=== PATIENT | female | born 1935 | race Native Hawaiian/Other Pacific Islander ===

== ENCOUNTER 2016-09-01 12:20 | Emergency (ER) | payer OTHER, BC ==
[~2016-09-01] VITALS: Ht 154.9 cm; Wt 56.7 kg
[~2016-09-01 12:20] MED LIST: CIPRO500 MG PO; LISI20TA24 PO; PILOCARPINE5 MG OR
[2016-09-01 13:05] VITALS: TEMP 98.1
[2016-09-01 14:00] LABS: PLATELET COUNT 387 K/uL (152-353)
[2016-09-01 14:11] LABS: POTASSIUM 3.8 mmol/L (3.6-5.2); SODIUM 125 mmol/L (136-145)
[2016-09-01 18:19] VITALS: BP 187/43
== END 2016-09-01 18:19 | disposition home or self-care (01) ==
LOC: ED 12:20
DX: C14.0 Malignant neoplasm of pharynx, unspecified (principal); M16.11 Unilateral primary osteoarthritis, right hip; M79.604 Pain in right leg; W18.39XA Other fall on same level, initial encounter; Y92.89 Other specified places as the place of occurrence of the external cause
CPT/HCPCS: 80053; 81000; 85027; 96372; 99283; J1885

== ENCOUNTER 2016-10-05 15:58 | Outpatient (CLI) | payer OTHER, BC ==
[2016-10-06] MEDS ORDERED: DONE5TAB PEG (01:21)
== END 2016-10-05 16:06 | disposition short-term general hospital (02) ==
LOC: AMB 15:58
DX: R11.2 Nausea with vomiting, unspecified (principal); R00.0 Tachycardia, unspecified; E86.0 Dehydration
CPT/HCPCS: A0425; A0427

== ENCOUNTER 2016-10-05 16:07 | Inpatient (IN) | payer OTHER, BC ==
[~2016-10-05] VITALS: Ht 162.6 cm; Wt 58.3 kg
[2016-10-05 16:10] VITALS: BP 148/77; TEMP 99.3
[2016-10-05 17:05] LABS: PLATELET COUNT 424 K/uL (152-353)
[2016-10-05 17:15] LABS: POTASSIUM 3.9 mmol/L (3.6-5.2); SODIUM 130 mmol/L (136-145)
[2016-10-05 18:00] VITALS: BP 137/75
[2016-10-05 20:14] VITALS: BP 147/77; TEMP 98.9; Ht 162.6 cm; Wt 58.3 kg
[2016-10-06] MEDS ORDERED: DONE5TAB PEG (01:21)
[2016-10-06 04:00] VITALS: BP 120/71; TEMP 97.8
[2016-10-06 07:56] VITALS: BP 141/68; TEMP 98.1
[2016-10-06 09:54] LABS: PLATELET COUNT 359 K/uL (152-353)
[2016-10-06 10:04] LABS: POTASSIUM 3.6 mmol/L (3.6-5.2); SODIUM 131 mmol/L (136-145)
[2016-10-06 12:00] VITALS: BP 137/71; TEMP 98
[2016-10-06 16:00] VITALS: BP 135/81; TEMP 98.9
[2016-10-06 20:00] VITALS: BP 148/76; TEMP 97.7
[2016-10-07] VITALS: BP 162/77; TEMP 100
[2016-10-07 02:50] LABS: PLATELET COUNT 332 K/uL (152-353)
[2016-10-07 03:32] LABS: POTASSIUM 3.5 mmol/L (3.6-5.2); SODIUM 129 mmol/L (136-145)
[2016-10-07 04:00] VITALS: BP 164/75; TEMP 99.5
[2016-10-07 08:00] VITALS: BP 148/80; TEMP 96.8
[2016-10-07 12:00] VITALS: BP 137/78; TEMP 97.1
[2016-10-07 16:00] VITALS: BP 163/71; TEMP 99.6
[2016-10-07 20:00] VITALS: BP 124/75; TEMP 99.5
[2016-10-08] VITALS: BP 141/66; TEMP 99.2
[2016-10-08 04:00] VITALS: BP 149/94; TEMP 98.9
[2016-10-08 05:20] LABS: PLATELET COUNT 334 K/uL (152-353)
[2016-10-08 05:51] LABS: SODIUM 131 mmol/L (136-145)
[2016-10-08 08:00] VITALS: BP 146/78; TEMP 97.4
[2016-10-08 12:00] VITALS: BP 138/80; TEMP 97.8
[2016-10-08 16:00] VITALS: BP 168/87; TEMP 98.6
[2016-10-08 20:13] VITALS: BP 148/89; TEMP 98.9
[2016-10-09 00:26] VITALS: BP 160/84; TEMP 97.7
[2016-10-09 05:00] VITALS: BP 121/77; TEMP 98.6
[2016-10-09 06:04] LABS: PLATELET COUNT 315 K/uL (152-353)
[2016-10-09 06:07] LABS: POTASSIUM 3.5 mmol/L (3.6-5.2); SODIUM 129 mmol/L (136-145)
[2016-10-09 08:00] VITALS: BP 164/79; TEMP 98.3
[2016-10-09 12:00] VITALS: BP 158/86; TEMP 97.5
[2016-10-09 16:00] VITALS: BP 158/74; TEMP 97.8
[2016-10-09 20:00] VITALS: BP 159/82; TEMP 97.7
[2016-10-10] VITALS: BP 146/85; TEMP 97.7
[2016-10-10 04:00] VITALS: BP 166/85; TEMP 97.4
[2016-10-10 06:51] LABS: PLATELET COUNT 356 K/uL (152-353)
[2016-10-10 06:55] LABS: POTASSIUM 3.6 mmol/L (3.6-5.2); SODIUM 127 mmol/L (136-145)
[2016-10-10 08:00] VITALS: BP 158/83; TEMP 98.4
[2016-10-10 12:00] VITALS: BP 122/77; TEMP 98.6
[2016-10-10 16:00] VITALS: BP 165/81; TEMP 98.1
== END 2016-10-10 15:47 | disposition swing bed (61) | DRG 394 ==
LOC: ED 16:07 → MED/SURG 18:22
PROVIDERS: Emergency Medicine; ADMIT Emergency Medicine
PROC: 30233N1 Transfusion of Nonautologous Red Blood Cells into Peripheral Vein, Percutaneous Approach (ICD-10-PCS; 2016-10-06)
PROC: 0D20XUZ Change Feeding Device in Upper Intestinal Tract, External Approach (ICD-10-PCS; principal; 2016-10-07)
DX: K94.23 Gastrostomy malfunction (principal); E46 Unspecified protein-calorie malnutrition; R55 Syncope and collapse; Y84.8 Other medical procedures as the cause of abnormal reaction of the patient, or of later complication, without mention of misadventure at the time of the procedure; Y73.8 Miscellaneous gastroenterology and urology devices associated with adverse incidents, not elsewhere classified; Y92.89 Other specified places as the place of occurrence of the external cause; R11.2 Nausea with vomiting, unspecified; E86.0 Dehydration; D64.89 Other specified anemias; M15.8 Other polyosteoarthritis; C14.0 Malignant neoplasm of pharynx, unspecified; C06.9 Malignant neoplasm of mouth, unspecified
CPT/HCPCS: 36415; 36600; 80048; 80053; 81000; 82272; 82550; 82553; 82805; 83605; 83735; 84132; 84484; 85027; 86850; 86900; 86901; 86922; 87045; 87077; 87205; 87328; 87329; 87493; 87798; 87899; 93005; 96365; 96366; 96367; 96372; 96376; 99284; J1650; J2060; J2405; J2543; J3480; J3490; P9016

== ENCOUNTER 2016-10-10 15:47 | Inpatient (IN) | payer OTHER, BC ==
[~2016-10-10] VITALS: Ht 162.6 cm; Wt 58.3 kg
[~2016-10-10 15:47] MED LIST changes: +DONE5TAB PEG
[2016-10-10 19:29] VITALS: BP 165/81; TEMP 98.1; Ht 162.6 cm; Wt 58.3 kg
[2016-10-10 20:00] VITALS: BP 148/72; TEMP 99.3
[2016-10-11 08:00] VITALS: BP 167/87; TEMP 97.2
== END 2016-10-11 16:45 | DRG 556 ==
LOC: MED/SURG 15:47
PROVIDERS: ADMIT Emergency Medicine
DX: M62.81 Muscle weakness (generalized) (principal); R41.82 Altered mental status, unspecified; R55 Syncope and collapse; C14.0 Malignant neoplasm of pharynx, unspecified; C06.89 Malignant neoplasm of overlapping sites of other parts of mouth; I10 Essential (primary) hypertension; M79.604 Pain in right leg
CPT/HCPCS: 36600; 82805; 85379; 94664; 94760; J1100; J3490

== ENCOUNTER 2016-10-11 16:45 | Inpatient (IN) | payer OTHER, BC ==
[~2016-10-11] VITALS: Ht 162.6 cm; Wt 61.3 kg
--- NOTE | 2016-10-11 16:40 | NUR ---
IN PT'S ROOM TO PERFORM AFTERNOON FEEDING AND ADMINISTER NEW MEDICATIONS ORDERED. PT RESTING QUIETLY. PT CONTINUING TO HAVE DIFFICULTY EXPECTORATING SECRETIONS. SMALL AMOUNT OF YELLOW SECRETIONS OBTAINED. @ 1642 PT STILL TRYING TO COUGH UP MORE PT SKIN COLOR OBSERVED CHANGING AROUND LIPS TO WHITE AND UNABLE TO TALK TO ME. @ 1644 O2 NC INCREASED FROM 2 TO 4L CALLED NURSES STATION FOR VENTI MASK STAT. WITHIN APRROXIMATELY 3 SECONDS LATER PT'S COLORING STARTED CHANGING AROUND LIPS TO BLUE. KAN INMAN RN IN ROOM AT THIS TIME. @ 1645 CODE CALLED. @ 1646 OBTAINED AMBU BAG FROM [facility] AT NURSES STATION. @ 164 SANYA MERIDA RT AT BEDSIDE BAGGING PT. @ 1650 [facility] IN ROOM. VITALS: BP 218/134 P 137 O2 99% RESPIRATORY HAVING DIFFICULTY BAGGING PATIENT. DR SANABRIA AT BEDSIDE. @ 1654 RACEMIC EPINEPHRINE GIVEN VIA NEB TX VIA BLOWBY. @ 1657 R FA 20G OBTAINED PER MYSELF. IVFS GIVEN PER BOLUS ROUTE INFUSING PER KAN INMAN RN. @ 1658 L HAND 18G SL OBTAINED VIA SARA DAVISON RN VITALS: BP 213/108 P 97 @ 1659 DECADRON 10MG IVP @ 1701 VITALS: BP 209/99 P 99 @ 1702 VITALS: BP 195/93 P 91 @ 1707 ETOMIDATE 10MG IVP PER TAE MORRIS, STEREOPLOTTER OPERATOR @ 1708 SUCC 100MG IVP PER TAE MORRIS, STEREOPLOTTER OPERATOR @ 1708 ETOMIDATE 10MG IVP PER TAE MORRIS, STEREOPLOTTER OPERATOR @ 1709 DR SANABRIA AT PT'S HEAD SUCTIONING PT WITH YAUNKER AND LARYNGISCOPE. GLIDESCOPE BROUGHT IN AT THIS TIME. @ 1710 VITALS: BP 199/119 P 125 O2 SAT 100% @ 1710 RESP BAGGING PT VIA AMBU BAG @ 1711 DR SANABRIA OBTAINING VISUAL AID WITH GLIDESCOPE TO ATTEMPT INTUBATION. SUCTIONING CONTINUED NEEDING WITH RODY UNSUCCESSFUL D/T POSSIBLE NECROTIC/BURNT SKIN/SCAR TISSUE. @ 1712 INTUBATION OBTAINED WITH 6 INCH ET TUBE @ 1716 VITALS: BP 193/109 P 128 O2 95% @ 1722 VITALS: BP 193/126 P 128 O2 100% @ 1725 DR SANABRIA BACK IN ROOM INFORMED HIM ICU BED IS HAVING TO BE TERMINALLY CLEANED D/T INFECTIOUS PATIENT PRIOR TO BEING ABLE TO TRANSFER PATIENT TO ICU. INFORMED HIM THAT I WE ARE UNABLE TO START ANY IV DRIPS ON FLOOR. NEW ORDER RECEIVED FOR VERSED 5MG IVP AND RESP TO MAINTAIN VENTILATION UNTIL ICU BED AVAILABLE. @ 1726 VERSED 5MG IVP GIVEN FOR SEDATION @ 1727 XRAY OBTAINED FOR ET PLACEMENT @ 1735 VERSED 5MG IVP GIVEN FOR SEDATION @ 1737 SPOKE WITH KAN INMAN RN IN ICU REGARDING ROOM. SHE STATED IN CLEANING ROOM WITH HOUSEKEEPING AT THIS TIME. @ 1738 VITALS: BP 156/87 P 95 02 SAT 100% @ 1743 VERSED 5MG IVP GIVEN FOR SEDATION @ 1800 RESP MAINTAINING AIRWAY MANAGEMENT MANUALLY BAGGING ICU ROOM STILL UNAVAILABLE RESP WILL MAINTAIN AIRWAY UNTIL PT ABLE TO TRANSFER TO ICU. @ 1900 PT TRANSFERRED TO ICU BED B. @ 1930 REPORT GIVEN TO SUMMER CRUZ RN
[2016-10-11 18:03] LABS: PLATELET COUNT 369 K/uL (152-353)
[2016-10-11 18:25] LABS: POTASSIUM 3.3 mmol/L (3.6-5.2); SODIUM 127 mmol/L (136-145)
--- NOTE | 2016-10-11 19:00 | NUR ---
RCD PT FROM FLOORRT AND NURSE IN ATTENDENCE ORAL ET PLACED ON VENT RATE 12 TV 500 PEEP 5 O2 SAT 40 PLACED ON VERSED GTT 5 MG/HR PUPILS PINPOINT ROBERTS SD PALE YELLOW LUNGS CLEAR BUT DISTANT.
--- NOTE | 2016-10-11 20:00 | NUR ---
FAMILY AT BEDSIDE RESTING ON VENT VERSED AT 5 MG/HR
--- NOTE | 2016-10-11 21:00 | NUR ---
EKG/ABG DONE JADEN VENT CHANGED 450 O2 35% MONITOR SR RESTING
--- NOTE | 2016-10-11 22:00 | NUR ---
TURNED ON R SIDE,CONSCIOUS SEDATION MAINTAINED 5 MG/HR. MONITOR SR ,URINE OUTPUT CLEAR YELLOW VENT MAINTAINED
[2016-10-11 22:30] VITALS: BP 109/71
[2016-10-11 22:45] VITALS: BP 115/70
[2016-10-11 23:00] VITALS: BP 97/59
--- NOTE | 2016-10-11 23:00 | NUR ---
RESTING WITH SEDATION RESP TX GIVEN VENT MAINTAINED MONITOR SR URINE OUT ADEQUATE CLEAR YELLOW.
[2016-10-11 23:30] VITALS: BP 116/64
[2016-10-12] VITALS (38 sets, daily range): BP systolic 94–145; BP diastolic 56–80; TEMP 94.2–98.3
--- NOTE | 2016-10-12 | NUR ---
TURNED AND POSITIONED ON L SIDE VENT MAINTAINED,VERSED 5 MG /HR MONITOR SR
--- NOTE | 2016-10-12 00:30 | NUR ---
EKG DONE BY RT SR,NO CHANGE
--- NOTE | 2016-10-12 01:00 | NUR ---
PT TEMP 98.1 R WARMING BLANKET PLACED ON PT AND JADEN WELL
--- NOTE | 2016-10-12 01:47 | NUR ---
BLOOD DRAWN TO LAB MAINTAIN VERSED GTT 5 MG TEMP 94.7 R VENT MAINTAINED.
--- NOTE | 2016-10-12 03:05 | NUR ---
PUPILS REMAIN PIN POINT VENTMAINTAINED,OCCASIONALLY MOVING LEGS. TEMP 94.8 R CONT ON WARMING BLANKET VERSED AT 5MG/HR.
--- NOTE | 2016-10-12 04:00 | NUR ---
NO CHANGE TEMP 95.6 R VERSED 5 MG/HR VENT MAINTAINED
--- NOTE | 2016-10-12 04:51 | NUR ---
ABG DRAWN TO LAB BY RESP MONITOR SR TEMP 95.9 R
--- NOTE | 2016-10-12 05:22 | NUR ---
REMAINS ON WARMING BLANKET TEMP 96.4 R VENT MAINTAINED VERSED AT 5 MG/HR. PUPILS PINPOINT MONITOR SR NO CHANGE.
--- NOTE | 2016-10-12 06:15 | NUR ---
EKG DONE CONT ON WARMING BLANKET TEMP 97 R MONITOR SR
--- NOTE | 2016-10-12 06:40 | NUR ---
BLOOD DRAWN TO LAB ,CHEST X RAY DONE JADEN TEMP 97.3. REPOSITIONED HOB 45 VENT MAINTAINED VERSED 5 MG.
[2016-10-12 06:52] LABS: PLATELET COUNT 363 K/uL (152-353)
[2016-10-12 07:04] LABS: POTASSIUM 3.5 mmol/L (3.6-5.2); SODIUM 132 mmol/L (136-145)
--- NOTE | 2016-10-12 07:30 | NUR ---
PT SWEATY, RECTAL TEMP 98.3. WARMING BLANKET TURNED OFF. WILL CONTINUE TO MONITOR.
--- NOTE | 2016-10-12 08:00 | NUR ---
EXTENSIVE MOUTH CARE DONE AND MOUTH SUCTIONED. PT HAS DRIED SECRETIONS AND LOOSE TISSUE IN MOUTH AND BACK OF THROAT.
--- NOTE | 2016-10-12 08:15 | NUR ---
RT AT BEDSIDE. O2 CHANGED TO 28%.
--- NOTE | 2016-10-12 09:11 | NUR ---
DR. SANABRIA HERE TO SEE PT.
--- NOTE | 2016-10-12 09:31 | NUR ---
RT CHANGED VENT TO SIMV.
--- NOTE | 2016-10-12 10:05 | NUR ---
DR. SANABRIA SPEAKING WIT DR. GARCIA ON THE PHONE. DR. SANABRIA WAS REFERRED TO CALL DR. COHN IN [place].
--- NOTE | 2016-10-12 10:37 | NUR ---
IV STARTED IN L AC WITH A 20G X1 ATTEMPT FOR CT.
--- NOTE | 2016-10-12 11:00 | NUR ---
pt to ct via bed with rt ventilating pt with ambu.
--- NOTE | 2016-10-12 11:10 | NUR ---
iv to l ac infiltrated after ct contrast inj. iv d/c'd with tip intact pressure dressing applied.
--- NOTE | 2016-10-12 11:20 | NUR ---
pt back from ct in stable cond. pt placed on monitors. will continue to monitor.
--- NOTE | 2016-10-12 12:08 | NUR ---
RECTAL TEMP 96.7. WARMING BLANKET PLACED BACK ON PT.
--- NOTE | 2016-10-12 12:10 | NUR ---
MOUTH CARE DONE AND SUCTIONED.
--- NOTE | 2016-10-12 14:10 | NUR ---
family at bedside.
--- NOTE | 2016-10-12 14:50 | NUR ---
rectal temp 97.8. warming blanket turned off. will continue to monitor.
--- NOTE | 2016-10-12 15:00 | NUR ---
mouth care done. pt suctioned. pt herrera well.
--- NOTE | 2016-10-12 17:00 | NUR ---
nad noted at this time./ rectal temp 97.3. will continue to monitor./ dr. green here for a check up on pt.
--- NOTE | 2016-10-12 18:37 | NUR ---
DR. SANABRIA AWARE OF PT'S I&0'S.
--- NOTE | 2016-10-12 18:45 | NUR ---
RECTAL TEMP 96.9 WARMING BLANKET BACK ON.
--- NOTE | 2016-10-12 19:30 | NUR ---
PM ASSESSMENT COMPLETED. PT TEMPERATURE PER RECTAL PROBE IS 97.1. PT WITH WARMING BLANKET ON AT THIS TIME.
--- NOTE | 2016-10-12 20:09 | NUR ---
BLOOD GLUCOSE 154.
--- NOTE | 2016-10-12 22:01 | NUR ---
PT'S CALLED. PT STATUS REPORTED. STATES HE WILL BE HERE IN AM TO SEE HER.
--- NOTE | 2016-10-12 22:05 | NUR ---
PT'S SKIN WARM TO TOUCH. TEMP 98.0 AXILLARY. WARMING BLANKET DC'D AT THIS TIME.
--- NOTE | 2016-10-12 23:01 | NUR ---
RESPIRATORY THERAPIST AT BEDSIDE FOR TREATMENT.
[2016-10-13] VITALS (41 sets, daily range): BP systolic 127–169; BP diastolic 64–96; TEMP 97.5–98.4
--- NOTE | 2016-10-13 04:00 | NUR ---
MOUTH CARE GIVEN.
--- NOTE | 2016-10-13 04:33 | NUR ---
RESPIRATORY THERAPIST AT BEDSIDE FOR TREATMENT.
--- NOTE | 2016-10-13 05:24 | NUR ---
LAB PRESENT FOR LAB DRAW.
[2016-10-13 06:16] LABS: PLATELET COUNT 385 K/uL (152-353)
[2016-10-13 06:18] LABS: POTASSIUM 3.6 mmol/L (3.6-5.2); SODIUM 139 mmol/L (136-145)
--- NOTE | 2016-10-13 07:41 | NUR ---
Lakia of Respiratory at bedside. Pt's breaths per minutes (bpm) decreased to 10 at this time. Pt tolerating well.
--- NOTE | 2016-10-13 08:00 | NUR ---
Family at bedside.
--- NOTE | 2016-10-13 10:30 | NUR ---
Mouth care given to Pt and suctioned at this time.
--- NOTE | 2016-10-13 13:38 | NUR ---
Dr. Byrnes speaking with via phone. No new orders at this time.
--- NOTE | 2016-10-13 14:51 | NUR ---
Dr. Byrnes speaking with Dr. Murray via phone. No new orders at this time.
--- NOTE | 2016-10-13 17:24 | NUR ---
pt has eyes open nad noted at this time.
--- NOTE | 2016-10-13 18:25 | NUR ---
PT MORE ALERT AND MOVING AROUND. RR [address] SANABRIA NOTIFIED. RECEIVED ORDER FOR DIPRAVAN.
--- NOTE | 2016-10-13 19:30 | NUR ---
RECEIVED PATIENT FROM LIVAN SMILEY RN. PATIENT IS SUPINE IN SEMI-FOWLERS POSITION. PATIENT IS SEDATED AND ON THE VENT. VENT SETTINGS RATE 10, PEAK 45, PEEP 5, TIDAL VOLUME 450, 28 O2%. ET TUBE NOTED 20 AT THE LIP. ASSESSMENT COMPLETED AT THIS TIME. IV 20G NOTED TO THE RIGHT WIRST INFUSING DIPRIVAN AT 3.8 MCG/HR, NS AT 100 ML/HR AND VERSED 3 MG/HR. PATIENT HAS WARMING BLANKET ON WITH RECTAL TEMP NOTED AT 98.0. ROBERTS NOTED TO BE PATENT AND INTACT WITH APPROX 200 ML OF CLEAR YELLOW URINE NOTED IN ROBERTS BAG. BED LOCKED IN LOW POSITION WITH SIDE RAILUP X2, CALL KULKARNI WITHIN REACH. FAMILY MEMEBER IS AT THE BEDSIDE. WILL CONTINUE TO MONITOR NEEDED.
--- NOTE | 2016-10-13 23:00 | NUR ---
PATIENT REPOSITIONED TO HER LEFT SIDE.
[2016-10-14] VITALS (42 sets, daily range): BP systolic 122–180; BP diastolic 69–97; TEMP 97–98.2
[2016-10-14] MEDS ORDERED: DONE5TAB PO (06:03)
[2016-10-14] MEDS ORDERED: PROTONIX20 MG PO (06:03)
[2016-10-14] MEDS ORDERED: LACTTAB PO (06:05)
--- NOTE | 2016-10-14 07:00 | NUR ---
REPOSITIONED IN BED ASSIST WITH BED BATH FINISHED PT JADEN WELL TURNED FROM SIDE TO SIDE. APPEARS TO BE RESTING WELL ON VENT. HOLDING ALL MEDS TO BE GIVEN VIA PEG TUBE FOR NOW. PT MAY BE POSSIBLE SURGERY/TRANSFER.
[2016-10-14 08:56] LABS: PLATELET COUNT 396 K/uL (152-353)
[2016-10-14 09:06] LABS: POTASSIUM 3.3 mmol/L (3.6-5.2); SODIUM 140 mmol/L (136-145)
--- NOTE | 2016-10-14 11:26 | NUR ---
RECIEVED IV MED RESTING QUIETLY. REPOSITIONED IN BED. VISITED. RECIEVED CALL FROM [facility], DR LOZADA ALSO CALLED WILL CALL BACK AFTER LUNCH TO TALK WITH DR SANABRIA. MOUTH CARE DONE.
--- NOTE | 2016-10-14 12:42 | NUR ---
SHANNON ORONA RN SPOKE WITH [facility] R/T HOSPICE AND FAMILY REQUESTED TO SPEAK WITH SOMEONE FROM [facility]. SHANNON ORONA RN SPOKE WITH DAMON FROM [facility] AND DAMON STATED THAT THEY WOULD COME TALK WITH THE FAMILY TODAY AROUND 2:00 PM.
--- NOTE | 2016-10-14 14:00 | NUR ---
FAMILY MEMBERS HERE, RECIEVED CALL THAT HOSPICE WOULD BE COMING BY. FREQUENT MOUTH CARE, SUCTION CREAMY SECRETIONS SIDE OF MOUTH.
--- NOTE | 2016-10-14 15:35 | NUR ---
HOSPICE HAD CALLED SAID THEY WOULD BE HERE A LITTLE LATTER. PT TURNED TO RIGHT SIDE MOUTH CARE SUCTION MOD AMOUNT WHITE THICK SECRETIONS OBTAINED. JADEN WELLL. REMOVED RECTAL TEMP PROBE. SKIN CARE LINNETTE CARE DONE. RESTING BETTER ON LEFT SIDE. MEDS EFFECTIVE FOR SEDATION. DOES NOT APPEAR TO BE HAVING ANY PAIN.
--- NOTE | 2016-10-14 18:16 | NUR ---
HOSPICE HAD COME BY TALKED WITH FAMILY MEMBERS. FAMILY TO TALK WITH DR SANABRIA TOMORROW ABOUT HOSPICE. CHECKED PEG NO RESIDUAL, HOB UP PT RECIEVED 60 ML WATER FOLLOWED BY 1/2 CAN ENSURE FOLLOW BY 60 ML WATER JADEN WELL. RECIEVED MEDS ORTDERED. REPOSITIONED IN BED HOB UP.
--- NOTE | 2016-10-14 19:30 | NUR ---
RCD PT ON VENT RATE 10 TV 450 O2 28 PEEP 5. ON SEDATINN VERSED 3MG/HR DIPROVAN 10MCG/3.9CC. MONITOR SR 97 RESTING ON BACK PEG IN TESSY RODRIGUEZ.
--- NOTE | 2016-10-14 20:30 | NUR ---
FAMILY CALLED FOR REPORT PT NO CHANGE TURNED AND POSITIONED ON R SIDE RESP TX GIVEN VENT DIPROVAN VERSED MAINTAINED TEMP 98 A
--- NOTE | 2016-10-14 21:30 | NUR ---
NO CHANGE MONITOR SR RESTING
[2016-10-15] VITALS (45 sets, daily range): BP systolic 117–185; BP diastolic 10–99; TEMP 97.3–97.7
--- NOTE | 2016-10-15 | NUR ---
RESP TX GIVEN TURNED TUBE FEEDING 1/2 CAN ENSURE 100H20 JADEN HOB ELEVATED N
--- NOTE | 2016-10-15 01:09 | NUR ---
TURNED AND POSITIONED ON BACK VERSED/DIPROVAN SEDATION CONTINUES MONITOR SR VENT MAINTAINED MOUTH SUCTIONED.
--- NOTE | 2016-10-15 02:00 | NUR ---
BP 178/101 DR SMITH CALLED LABATELOL 20 MG IV GIVEN 169/90 AFTER WILL CONT TO MONITOR
--- NOTE | 2016-10-15 03:00 | NUR ---
BP REMAINS ELEVATED NO CHANGE
--- NOTE | 2016-10-15 04:00 | NUR ---
RESP TX GIVEN TURNED ON R SIDE
--- NOTE | 2016-10-15 05:00 | NUR ---
PERIODS OF BRADYCARDIA 56/60.STARTED 20G R WRIST X1. BLOOD DRAWN TO LAB
[2016-10-15 06:03] LABS: PLATELET COUNT 459 K/uL (152-353)
--- NOTE | 2016-10-15 06:06 | NUR ---
BLOOD GASES DRAWN BY PT JADEN PROCEDURE TURNED TO BACK,TUBE FEEDING 120CC ENSURE [id number] NO RESIDUAL
--- NOTE | 2016-10-15 06:41 | NUR ---
CHEST XRAY DONE REPOSITIONED MONITOR SR
--- NOTE | 2016-10-15 08:07 | NUR ---
ANM ASSESSEMENT DONE. PT RESTING QUIETLY ELEVATED B/P 172/93 WILL CALL MD. STARTED IV RIGHT AC X1 STICK BLOOD REDRAWN FOR LAB JADEN WELL. GOOD BLOOD RETURN IV FLUIDS CHANGED TO NEW SITE. NOTED DEPENDENT EDEMA.
[2016-10-15 08:44] LABS: POTASSIUM 3.4 mmol/L (3.6-5.2); SODIUM 132 mmol/L (136-145)
--- NOTE | 2016-10-15 10:30 | NUR ---
PT REPOSITIONED RECIEVED AM MEDS JADEN WELL. ELEVATED B/P 190/99. DR WATTS HERE ASKED HIM ABOUT B/P RECIEVED ORDER FOR HYDRAZINE 10 MG IV X 1 DOSE. MED PULLED AND GIVEN ORDER. FAMILY AT BEDSIDE, TO MEET WITH DR SANABRIA AND HOSPICE NURSE TODAY.
[2016-10-15] MEDS ORDERED: LISINOP/HCTZ1 TA2 PO (10:56)
--- NOTE | 2016-10-15 11:07 | NUR ---
SPOKE WITH DR WATTS WILL NOT BE HAVING ANY SURGERY TODAY POSSIBLE TRACH PLACED. CHECKED PEG NO RESIDUAL, PT RECIEVED FEEDING ORDERED JADEN WELL. B/P 151/78 MEDS FOR HIGH B/P EFFECTIVE. PT APPEARS TO BE RESTING WELL.
--- NOTE | 2016-10-15 13:30 | NUR ---
DR SANABRIA MET WITH FAMILY WAIT ROOM DISCUSSED PT OUTCOME. PT WILL HAVE TRACH PLACED MONDAY. FAMILY MEMBERS AGREED. THEN PT TO BE ADMITTED TO HOSPICE. RECIEVED CALL FROM RAQUEL LUX RN FROM HOSPICE, INFORMED HER ABOUT FAMILY DECISION.
--- NOTE | 2016-10-15 14:30 | NUR ---
RESTING QUIETLY HOB UP NO ACUTE DISTRESS REPOSITIONED IN BED.
--- NOTE | 2016-10-15 17:00 | NUR ---
REPOSITIONED IN BED MOUTH CARE DONE, JADEN WELL. CHECKED FEEDING NO RESIDUAL FROM PEG. PT RECIEVED 1/2 CAN ENSURE WITH FLUSHES. RECIEVED AFTERNOON MEDS JADEN WELL. B/P MEDS GIVEN TODAY EFFECTIVE B/P 152/78
--- NOTE | 2016-10-15 20:10 | NUR ---
PM ASSESSMENT COMPLETED. AT BEDSIDE. ROBERTS CATHETER TO BEDSIDE DRAINAGE.
--- NOTE | 2016-10-15 20:20 | NUR ---
DR. SANABRIA NOTIFIED OF PT'S INCREASING BP'S. ORDER RECEIVED.
[2016-10-16] VITALS (48 sets, daily range): BP systolic 111–163; BP diastolic 57–90; TEMP 93–97.9
--- NOTE | 2016-10-16 | NUR ---
RESIDUAL NOTED FROM PEG. UNABLE TO FEED AT THIS TIME.
--- NOTE | 2016-10-16 00:15 | NUR ---
BEDBATH GIVEN. PT WITH LARGE BOWEL MOVEMENT. LINENS CHANGED. CREAM APPLIED TO REDDENED AREA ON BUTTOCKS.
--- NOTE | 2016-10-16 02:00 | NUR ---
NO RESIDUAL NOTED FROM PEG TUBE. 1/2 CAN OF ENSURE GIVEN WITH FLUSHES.
--- NOTE | 2016-10-16 05:45 | NUR ---
RESPIRATORY THERAPIST PRESENT FOR ARTERIAL BLOOD GAS DRAW.
--- NOTE | 2016-10-16 05:45 | NUR ---
RADIOLOGY PRESENT FOR CHEST X-RAY
--- NOTE | 2016-10-16 06:15 | NUR ---
LABS DRAWN. TO LAB
[2016-10-16 06:35] LABS: PLATELET COUNT 429 K/uL (152-353)
[2016-10-16 06:52] LABS: POTASSIUM 3.2 mmol/L (3.6-5.2); SODIUM 135 mmol/L (136-145)
--- NOTE | 2016-10-16 08:25 | NUR ---
AM ASSESSEMENT DONE MOVED UP IN BED REPOSITONED. MOUTH CARE DONE CHECKED PEG NO RESIDUAL FLUSHED 40 ML WATER. RESP EVEN 12 MIN BREATHING OVER VENT 2 BREATHS MIN. SAT 99% INSP CLEAR NOTED A LITTLE FINE EXP FINE RONCHI. IV FLUIDS INFUSING WITHOUT DIFFICULTY.
--- NOTE | 2016-10-16 10:00 | NUR ---
DR SANABRIA VISITED CHECKED PT, RECIEVED ORDERS. HERE TO VISIT, SPOKE WITH DR. SANABRIA. PT PULLED UP IN BED REPOSITIONED SUCTION ET TUBE THIN SECRETION VIA ET TUBE OBTAINED. MEDS INFUSING ORDERED. IV MEDS TO KVO WILL GIVE LASIX WHEN PROFILED.
--- NOTE | 2016-10-16 12:15 | NUR ---
PT TURNED AND REPOSITIONED, FREQUENT MOUTH CARE, FREQUENT SUCTION ET TUBE. SMALL AMOUNT YELLOW WHITE SECRETIONS FROM ET. PT HAVING SOME DIARRHEA WHEN COUGHING, CONTINUE TO RECIEVED FEEDING 1/2 CAN ENSURE. WILL CHANGE TO NPO STATUS AT MIDNIGHT. FAMILY MEMBERS VISITED.
--- NOTE | 2016-10-16 14:30 | NUR ---
TURNED AND REPOSITIONED FREQUENT MOUTH CARE. RECIEVED IV MEDS ORDERED. PATIENT RECIEVING MAGNESIUN,POTASSIUM AND LASIX 20 ORDERED.
--- NOTE | 2016-10-16 15:28 | NUR ---
MEDS EFFECTIVE VOIDING WELL CLEAR YELLOW URINE LASIX EFFECTIVE. IV FLUIDS AT O. B/P HAD BEEN RUNNING TO HIGH SIDE 159/89, 163/85 RECIEVED HYDRALAZINE 10 MG IVP. B/P NOW 120/67 P 102 JADEN WELL
--- NOTE | 2016-10-16 17:45 | NUR ---
PT RESTING IN BED HOB FREQUENT SUCTION, ET, MOUTH CARE. VISITED. IV MEDS INFUSING ORDERED. GOOD OUTPUT FROM FOLY LASIX EFFECTIVE.
[2016-10-17] VITALS (42 sets, daily range): BP systolic 109–180; BP diastolic 54–100; TEMP 96.9–99
--- NOTE | 2016-10-17 02:51 | NUR ---
NO CHANGE IN STATUS.
--- NOTE | 2016-10-17 04:20 | NUR ---
PT HAD LARGE BOWEL MOVEMENT. PT CLEANED, CALAZIME CREAM APPLIED TO BUTTOCKS AREA. LINENS CHANGED.
--- NOTE | 2016-10-17 04:39 | NUR ---
RESPIRATORY THERAPIST AT BEDSIDE. SUCTIONED PT AND RECEIVED TENACIOUS YELLOW SECRETIONS.
--- NOTE | 2016-10-17 05:20 | NUR ---
ARTERIAL BLOOD GAS DRAWN PER RESPIRATORY THERAPIST.
--- NOTE | 2016-10-17 06:00 | NUR ---
RADIOLOGY PRESENT FOR CHEST X-RAY
--- NOTE | 2016-10-17 06:00 | NUR ---
ATTEMPTED BLOOD DRAW PER KAYLEE PIERRE RN. ANDREI RYDER RN. UNSUCESSFUL. LAB NOTIFIED.
--- NOTE | 2016-10-17 06:40 | NUR ---
LABS DRAWN FROM LEFT FOOT PER ZOHREH NGUYEN RN. TO LAB.
[2016-10-17 06:56] LABS: PLATELET COUNT 437 K/uL (152-353)
--- NOTE | 2016-10-17 07:30 | NUR ---
AM ASSESMENT DONE.
--- NOTE | 2016-10-17 08:00 | NUR ---
PT SUCTIONED. MOUTH CARE DONE.
[2016-10-17 08:21] LABS: POTASSIUM 3.6 mmol/L (3.6-5.2); SODIUM 134 mmol/L (136-145)
[2016-10-17 09:39] LABS: PARTIAL THROMBOPLASTIN TIME 23.6 SECONDS (24.5-33.6)
--- NOTE | 2016-10-17 10:29 | NUR ---
DR. WATTS AT BEDSIDE SPEAKING WITH FAMILY.
--- NOTE | 2016-10-17 10:52 | NUR ---
PT TAKEN OFF VENTILATOR TAKEN TO O.R. FOR A TRACH TO BE PUT IN.
--- NOTE | 2016-10-17 10:54 | NUR ---
PT TO OR VIA BED IN STABLE COND. RT AND TAE BISHOP AND OR STAFF AT BEDSIDE.
--- NOTE | 2016-10-17 12:50 | NUR ---
PT BACK FROM OR IN STABLE COND. RT AT BEDSIDE. PT HAS A TRACH AND PLACED ON VENT AND CENTRAL LINE TO R NECK WILL GET XRAY FOR PLACEMENT CHECK.
--- NOTE | 2016-10-17 12:58 | NUR ---
RAD HERE FOR XRAY.
--- NOTE | 2016-10-17 14:44 | NUR ---
RT AT BEDSIDE. PT HAS EYES OPEN. RT CHANGED PT TO CPAP. INSTRUCTED PT TO BREATHE ON HER OWN. PT SHOOK HER HEAD IN UNDERSTANDING. WILL CONTINUE TO MONITOR.
--- NOTE | 2016-10-17 14:59 | NUR ---
IVFS CHANGED TO CENTRAL LINE. PERIPHERAL IVS X 2 D/C'D WITH TIP INTACT PRESSURE DRESSING APPLIED.
--- NOTE | 2016-10-17 15:02 | NUR ---
PT STILL SLEEPY. RT CHANGED PT TO SIMV ON VENT.
--- NOTE | 2016-10-17 16:19 | NUR ---
FAMILY AT BEDSIDE.
--- NOTE | 2016-10-17 18:15 | NUR ---
IV TO L HAND D/C'D WITH TIP INTACT PRESSURE DRESSING APPLIED.
--- NOTE | 2016-10-17 20:00 | NUR ---
PT BECAME ALERT WHILE HER AND FAMILY VISITED. PT HAD INCREASED HR OF 110-115 BPM AND PT WAS FLUSHED COLORED. DR. WATTS AWARE. PT IS RECEIVING VERSED 2 MG/ML AN HOUR VIA PUMP. VERSED WAS INCREASED TO 5. 21:00PM PT CALMER AND HR/BP MORE STABLE. CM IS SHOWING SINUS TACH WITHOUT ECTOPY. TRACHE COLLAR INTACT. ROBERTS CATH INTACT. ORAL CARE GIVEN. LIPS LUBRICATED. PT REPOSITIONED.
--- NOTE | 2016-10-17 20:05 | NUR ---
DR WATTS VISITED. RECEIVED ORDER FOR EKG AND CARDIAC ENZYMES.
--- NOTE | 2016-10-17 21:00 | NUR ---
PT BGL WAS 146.
[2016-10-18] VITALS (24 sets, daily range): BP systolic 111–172; BP diastolic 60–85; TEMP 97.9–98.4
[2016-10-18 05:10] LABS: PLATELET COUNT 454 K/uL (152-353)
[2016-10-18 05:23] LABS: POTASSIUM 3.6 mmol/L (3.6-5.2); SODIUM 138 mmol/L (136-145)
--- NOTE | 2016-10-18 06:26 | NUR ---
VERSED WAS DECREASED TO 2 MG/ML AN HOUR. PT CALM AND VITAL SIGNS ARE STABLE.
--- NOTE | 2016-10-18 07:30 | NUR ---
AM ASSESSMENT DONE. PT HAS EYES OPEN. PT NODS HEAD IN UNDERSTANDING. MOUTH CARE DONE.
--- NOTE | 2016-10-18 08:30 | NUR ---
DR. WATTS AT BEDSIDE.
--- NOTE | 2016-10-18 09:00 | NUR ---
IVY KULKARNI PCT GAVE PT A BATH, LINNETTE CARE DONE. GOWN AND BED LINENS CHANGED. PT REPOSITIOINED.
--- NOTE | 2016-10-18 10:07 | NUR ---
RT AT BEDSIDE DOING TRACH CARE.
--- NOTE | 2016-10-18 11:55 | NUR ---
PLACED PT ON TRACH MASK AT THIS TIME. COOL MIST O2 AT 35%.PT'S SPO2 IS 98% AT THIS TIME.
--- NOTE | 2016-10-18 12:15 | NUR ---
DR. SANABRIA HERE TO SEE PT. FAMILY AT BEDSIDE.
--- NOTE | 2016-10-18 17:56 | NUR ---
CALLED TO GET REPORT ON PT THAT WAS MOVED FROM ICU TO 102 AND NURSE STATES THEY WILL CALL ME BACK
[2016-10-19 01:01] VITALS: BP 154/65; TEMP 97.4
[2016-10-19 04:45] LABS: PLATELET COUNT 373 K/uL (152-353)
[2016-10-19 05:04] LABS: POTASSIUM 3.2 mmol/L (3.6-5.2); SODIUM 136 mmol/L (136-145)
[2016-10-19 05:26] VITALS: BP 157/77; TEMP 97.5
[2016-10-19 08:00] VITALS: BP 160/81; TEMP 97.5
[2016-10-19 12:00] VITALS: BP 179/88; TEMP 98.6
--- NOTE | 2016-10-19 13:21 | NUR ---
TRACH CARE WAS PERFORMED ALSO CHANGED OUT TRACH COLLAR. PT WAS SUCTIONED. PT. TOLERATED WELL.
--- NOTE | 2016-10-19 14:18 | NUR ---
1420 PER PT TOO UPSET AT THIS TIME FOR A BATH. WILL ATTEMPT TO BATH AT A LATER TIME.
--- NOTE | 2016-10-19 16:30 | NUR ---
PT CHANGED TO INPATIENT HOSPICE. NO CHANGE IN PTS STATUS SINCE AM ASSESSMENT
== END 2016-10-19 15:29 | disposition short-term general hospital (02) | DRG 4 ==
LOC: MED/SURG 16:45 → ICU 19:10 → MED/SURG 10-18 17:30
PROVIDERS: ADMIT Emergency Medicine
PROC: 5A1945Z Respiratory Ventilation, 24-96 Consecutive Hours (ICD-10-PCS; principal; 2016-10-11)
PROC: 0BH17EZ Insertion of Endotracheal Airway into Trachea, Via Natural or Artificial Opening (ICD-10-PCS; 2016-10-11)
PROC: 0B110F4 Bypass Trachea to Cutaneous with Tracheostomy Device, Open Approach (ICD-10-PCS; 2016-10-17)
PROC: 05HM33Z Insertion of Infusion Device into Right Internal Jugular Vein, Percutaneous Approach (ICD-10-PCS; 2016-10-17)
PROC: B543ZZA Ultrasonography of Right Jugular Veins, Guidance (ICD-10-PCS; 2016-10-17)
DX: J96.00 Acute respiratory failure, unspecified whether with hypoxia or hypercapnia (principal); E87.4 Mixed disorder of acid-base balance; E87.1 Hypo-osmolality and hyponatremia; I87.8 Other specified disorders of veins; E83.42 Hypomagnesemia; R73.9 Hyperglycemia, unspecified; E87.6 Hypokalemia; C10.9 Malignant neoplasm of oropharynx, unspecified
CPT/HCPCS: 31500; 36415; 36591; 36600; 80048; 80053; 82550; 82805; 83605; 83735; 84484; 85027; 85610; 85730; 87493; 93005; 94003; 94640; 94664; 94760; 96372; C1768; J0330; J0360; J0696; J1644; J1940; J2250; J2920; J3010; J3475; J3480; J3490; Q9963

== ENCOUNTER 2016-10-19 16:33 | Inpatient (IN) | payer OTHER ==
[~2016-10-19] VITALS: Ht 162.6 cm; Wt 58.3 kg
[~2016-10-19 16:33] MED LIST changes: +DONE5TAB PO; +LACTTAB PO; +LISINOP/HCTZ1 TA2 PO; +PROTONIX20 MG PO
[2016-10-19 20:00] VITALS: BP 155/77; TEMP 98.5
[2016-10-20 08:00] VITALS: BP 173/88; TEMP 98.1
[2016-10-20 20:00] VITALS: BP 154/83; TEMP 98.4
--- NOTE | 2016-10-20 20:58 | NUR ---
NO RESIDUAL NOTED FROM PEG TUBE. 1/2 CAN OF ENSURE ADMINISTERED AT THIS TIME THROUGH PEG TUBE WITH 60 MLS OF WATER FLUSHED BEFORE AND AFTER FEEDING. SCHEDULED MEDS WERE ALSO CRUSHED AND ADMINISTERED THROUGH PEG TUBE AT THIS TIME. PT TOLERATED WELL. WILL CONTINUE TO MONITOR.
[2016-10-21 08:00] VITALS: BP 108/85; TEMP 97.8
--- NOTE | 2016-10-21 09:30 | NUR ---
IN PT'S ROOM. RESP THERAPY IN ROOM PERFORMING TRACH CARE. NO RESIDUAL NOTED FROM PEG TUBE. FLUSHED PEG WITH 60ML OF WATER. PT GIVEN 1/2 ENSURE PLUS AND AM MEDICATIONS. FLUSHED WITH 60ML OF WATER AFTER FEEDING. PT TOLERATING WELL.
--- NOTE | 2016-10-21 10:02 | NUR ---
TRAACH CARE DONE
--- NOTE | 2016-10-21 14:30 | NUR ---
IN TO SEE PT FOR FEEDING. UNABLE TO DO AT THIS TIME. PT HAS NOTED 60ML OF RESIDUAL AND REPLACED.
--- NOTE | 2016-10-21 16:40 | NUR ---
IN PT'S ROOM TO ACCESS FEEDING AT THIS TIME. 25ML OF RESIDUAL OBSERVED AND REPLACED. MEDS GIVEN AND FLUSHED WITH 30ML OF WATER.
[2016-10-21 20:00] VITALS: BP 170/87; TEMP 98.2
--- NOTE | 2016-10-22 03:01 | NUR ---
10/22/16 0055 TURNED AND REPOSTIONED FOR COMFORT.MOUTH CARE GIVEN WITH VASELINE APPLIED TO LIPS.DAUGHTER PRESENT AT BEDSIDE.CC
--- NOTE | 2016-10-22 03:02 | NUR ---
10/22/16 0300 PT AWAKE ALERT TALKING C/O OF SLIGHT INDIGESTION,HOB ELEVATED PT SUCTIONED PER DAUGHTER.NO C/O PAIN.PT REFUSED TO BE REPOSTIONED STATES SHE IS FINE RIGHT NOW.CC
[2016-10-22 08:00] VITALS: BP 176/88; TEMP 98.3
--- NOTE | 2016-10-22 08:30 | NUR ---
IN TO ACCESS FEEDING FOR PT. NO RESIDUAL NOTED FROM PEG TUBE. FLUSHED WITH 60ML OF WATER. AM MEDS AND 1/2 CAN OF FEEDING GIVEN. FLUSHED TUBE WITH ANOTHER 60ML OF WATER. PT TOLERATED WELL. DAUGHTER AT BS.
--- NOTE | 2016-10-22 10:30 | NUR ---
TRACH CARE DONE
--- NOTE | 2016-10-22 13:40 | NUR ---
PT CHANGED OF BM AND LINENS CHANGED. NAD NOTED. DAUGHTER AT BS.
--- NOTE | 2016-10-22 15:10 | NUR ---
IN TO SEE PT. PT SLEEPING. FAMILY REQUEST NOT TO ACCESS FEEDING AT THIS TIME.
--- NOTE | 2016-10-22 16:30 | NUR ---
EXTERNAL TRACH CARE DONE INNER CANNULA NOT TAKEN OUT CLEAN AT THIS TIME.
--- NOTE | 2016-10-22 18:30 | NUR ---
ACCESSING FEEDING. NO RESIDUAL OBSERVED. FLUSHED PEG WITH 60ML OF WATER. MEDS GIVEN AND 1/2 CAN OF ENSURE. FLUSHED WITH ANOTHER 60ML OF WATER. PT TOLERATED WELL.
[2016-10-22 20:00] VITALS: BP 154/83; TEMP 98.1
--- NOTE | 2016-10-22 23:39 | NUR ---
WAS CALLED BY TARYN PRETTY TO ASSESS THE PATIENT BECUASE THE DAUGHTER SAID SHE WAS GIVEN COUGH MEDICATION AND SHE THOUGHT MAYBE SOMETHING WAS STRANGLING HER , I WENT TO ROOM CHECKED ON PATIENT, MRS PASCAL WAS FINE NO DISTRESS NOTED SHE HAD HER SPEAKING VALVE STILL IN. I LISTENED TO HER BREATH SOUNDS WERE CLEAR, SHE HAD SOME SECRETIONS AT BOTTOM PART OF TRACH I GOT SOME GAUZE AND STERILE WATER AND CLEANED THE AREA AND AROUND IT AND THEN WIPED SPEAKING VALVE OFF I EXPLAINED TO HER THAT I WAS NOT GOING TO DEEP SUCTION HER DUE TO THE FACT I DID NOT HEAR ANYTHING AND THAT IF SHE GOT AT ANY POINT TONIGHT IN DISTRESS OR COULDNT BREATH OR WAS COUGHING LOT OF SECRETIONS UP I WOULD COME BACK DOWN AND AT THAT TIME SUCTION HER. SHE STATED SHE WAS OK AND FELT LIKE SHE COULD BREATH, PLACED A PIECE OF GAUZE AT BOTTOM OF TRACH TO HELP WITH SECRETIONS. TREATMENT WAS NOT GIVEN AT MIDNIGHT DUE TO CLEAR BREATH SOUNDS AND NO DISTRESS NOTED SATS WERE 95
--- NOTE | 2016-10-23 00:56 | NUR ---
10/22/16 2230 GREATER THAN 60ML RESIDUAL IN PEG TUBE.TUBE FEEDING HELD.MEDICATIONS GIVEN FLUSHED WITH TOTAL OF 120 ML H20 PT TOLERATED WELL.CC 10/23/16 0030 PCT TURNED PATIENT AND REPOSTIONED.CC
--- NOTE | 2016-10-23 03:47 | NUR ---
10/23/16 0250 RESP NOTIFIED OF PT HAVING COUGHING SPELL EVERY 15 MINUTES PER FAMILY.RESP CLEANED CANNULA WITH PEROXIDE AND CLEANED TRACHED.RESP SAID PT COUGHED AND A MODERATE AMOUNT OF SECRETIONS CAME OUT.CC
--- NOTE | 2016-10-23 03:56 | NUR ---
10/23/16 0355 PT FAMILY SAID TO LET PT REST AT THIS TIME SAID NOT TO TURN PT AT THIS TIME SHE IS RESTING GOOD.CC
[2016-10-23 08:00] VITALS: BP 181/97; TEMP 98
--- NOTE | 2016-10-23 09:30 | NUR ---
IN ACCESSING PT. NO RESIDUAL OBSERVED PEG TUBE. FLUSHED WITH 60ML OF WATER. AM MEDS GIVEN. 1/2 CAN OF ENSURE ENLIVE GIVEN PER PEG. FLUSHED WITH ANOTHER 60ML OF WATER. PT TOLERATED WELL.
--- NOTE | 2016-10-23 13:30 | NUR ---
IN PT'S ROOM. FAMILY VISITING. PERFORMED EXTERNAL TRACH CARE. INNER CANNULA CLEAN AT THIS TIME.
--- NOTE | 2016-10-23 16:30 | NUR ---
ACCESSED PT. BM NOTED. CLEANED PT AND LINENS. NO RESIDUAL NOTED. FLUSHED WITH 60ML OF WATER. MEDS GIVEN AND 1/2 CAN OF ENSURE GIVEN. FLUSHED WITH ANOTHER 60ML OF WATER. EXTERNAL AND INTERNAL TRACE CARE DONE. PT TOLERATED ALL WELL.
[2016-10-23 20:00] VITALS: BP 149/82; TEMP 97.5
--- NOTE | 2016-10-23 20:54 | NUR ---
TRACH CARE HAS BEEN DONE, WIPED AROUND TRACH AND UNDER IT. INNER CANNULA WAS STUCK AND WOULD NOT COM EOUT EASILY WHEN TOOK SPEAKING VALVE OFF, I DID NOT WANT TO REALLY PULL ON IT DUE TO THE TRACH BEING SUTURED INSIDE AND OUT, YUE ALVARADO TRIED TO GET IT OUT SHE WAS UNABLE SO AT THIS TIME I COULD SEE THERE WAS LOTS OF SECRETIONS ON ERIK INSIDE OF THE TRACH, I WALKED TO ER AND GOT WHO HELPED GET IT OUT SUCCESSFULLY. I CLEANED THE INNER CANNULA AND PLACED IT BACK IN AND PLACED SPEAKING VALVE BACK ON.
--- NOTE | 2016-10-24 04:39 | NUR ---
10/23/16 AT 2120PT AWAKE AND ORIENTED LAYING IN POSITION OF COMFORT IN BED WITH HOB ELEVATED, AT BEDSIDE. RESPIRATORY COMPLETED TRACH CARE EARLIER IN SHIFT WITH SMALL AMOUNT OF DRAINAGE NOTED FROM AROUND TRACH SITE. TRACH INTACT WITH NO PROBLEMS NOTED TO SITE AT THIS TIME, PT HAS SPEAKING VALVE IN. PEG TUBE INTACT TO L ABD WITH NO PROBLEMS NOTED TO SITE. NO RESIDUAL NOTED VIA PEG, FLUSHED WITH 60ML WATER BEFORE AND AFTER ADX OF MEDIICATION(CRUSHED)/FEEDING. GAVE 1/2 CAN OF ENSURE PER ORDER, PT TOLERATED WITH NO PROBLEMS. PULLED UP AND REPOSITIONED IN BED PER PT REQUEST. WILL MONITOR, RAILS UP X3, CALL LIGHT IN REACH, BED IN LOW POSITION, ENCOURAGED TO CALL NEEDED, PT AND ACKNOWLEDG UNDERSTANDING. CAN OF ENSURE.
[2016-10-24 08:00] VITALS: BP 152/79; TEMP 96.6
--- NOTE | 2016-10-24 18:16 | NUR ---
1700-PEG TUBE FEEDING WITH NO RESIDUAL NOTED. 120 CC OF ENSURE AND FLUSHED WITH WATER. PT [id number] WELL.
[2016-10-24 20:00] VITALS: BP 142/97; TEMP 97.5
[2016-10-25 08:00] VITALS: BP 145/86; TEMP 97.4
--- NOTE | 2016-10-25 10:55 | NUR ---
TRACH DONE AND PATIENT SUCTIONED SATS 98% ON ROOM AIR AND HR 88
[2016-10-25 20:10] VITALS: BP 129/70; TEMP 97.4
--- NOTE | 2016-10-25 21:31 | NUR ---
NO RESIDUAL NOTED FROM PEG TUBE. ALL SCHEDULED MEDS WERE CRUSHED AND ADMINISTERED THROUGH PEG TUBE AT THIS TIME. PT TOLERATED WELL. WILL CONTINUE TO MONITOR.
--- NOTE | 2016-10-26 05:39 | NUR ---
NO RESIDUAL NOTED FROM PEG TUBE. 1/2 CANS OF ENSURE (120 ML) ADMINISTERED AT THIS TIME. FLUSHED WITH WATER BEFORE AND AFTER FEEDING. PT TOLERATED WELL.
[2016-10-26 08:00] VITALS: BP 126/67; TEMP 97.9
--- NOTE | 2016-10-26 11:30 | NUR ---
CALL SAID Pt. WAS HAVING DIFFICULT BREATHING. GOT TO ROOM HAD O2 ON Pt. RESP IN ROOM ALSO Pt. SHOULDN'T BE ON O2. Pt. CALMED DOWN Pt. WAS WANTING STUFFED DOG. MOUTH AND TACH CARE GIVEN.
--- NOTE | 2016-10-26 18:00 | NUR ---
TUBE FEEDING DONE.
[2016-10-26 20:21] VITALS: BP 109/73; TEMP 97.6
--- NOTE | 2016-10-26 21:08 | NUR ---
PT WAS RESTING TRACH CARE AT THIS TIME WAS NOT NEEDED
--- NOTE | 2016-10-27 00:24 | NUR ---
MOUTH CARE COMPLETED AT THIS TIME.
--- NOTE | 2016-10-27 04:03 | NUR ---
MOUTH CARE COMPLETED AT THIS TIME, PT TOLERATED WITH NO PROBLEMS.
--- NOTE | 2016-10-27 04:44 | NUR ---
10/26/16 AT 2140NO RESIDUAL NOTED VIA PEG, ADX MEDICATION AND 1/2 CAN ENSURE PER ORDER, FLUSHED BEFORE AND AFTER WITH 60ML WATER, PT TOLERATED WITH NO PROBLEMS.
--- NOTE | 2016-10-27 06:23 | NUR ---
MOUTH CARE COMPLETED AT THIS TIME. PT TOLERATED WITH NO PROBLEMS.
[2016-10-27 08:00] VITALS: BP 139/77; TEMP 98.9
--- NOTE | 2016-10-27 10:00 | NUR ---
G TUBE FEED DONE 1/2 CAN OF ENSURE.
--- NOTE | 2016-10-27 18:00 | NUR ---
MOUTH CARE DONE Q2HRS.
[2016-10-27 20:00] VITALS: BP 141/79; TEMP 97.4
--- NOTE | 2016-10-27 22:19 | NUR ---
MOUTH CARE COMPLETED AT THIS TIME.
[2016-10-28 08:00] VITALS: BP 149/78; TEMP 97.7
--- NOTE | 2016-10-28 10:09 | NUR ---
TRACH CARE DONE BY POWER DEAN,[employer] DIVING INSTRUCTOR-[employer]ORTS MANAGEMENT INTERN AND DEEDEE ORTEGA,PLATFORM BUILDER
--- NOTE | 2016-10-28 10:21 | NUR ---
TRACH CARE DONE VIA RESP. FEEDING DONE WITH AM MEDS THIS TIME. NO RESIDUAL NOTED PRIOR TO FEEDING. PT TOLERATED WELL. HOB ELEVATED.
--- NOTE | 2016-10-28 14:19 | NUR ---
WITHHELD PT'S FEEDING AT THIS TIEM DUE TO RESIDUAL OF GREATER THAN 30ML.
--- NOTE | 2016-10-28 16:28 | NUR ---
TRACH CARE DONE WITH MOUTH CARE
[2016-10-28 20:00] VITALS: BP 127/72; TEMP 97.4
--- NOTE | 2016-10-28 21:06 | NUR ---
<10 MLS OF RESIDUAL NOTED FROM PEG TUBE. SCHEDULED MEDS WERE CRUSHED AND ADMINISTERED THROUGH TUBE. PT TOLERATED WELL. WILL CONTINUE TO MONITOR.
--- NOTE | 2016-10-29 00:06 | NUR ---
NO RESIDUAL NOTED FROM PEG TUBE. 1/2 CAN OF ENSURE ADMINISTERED THROUGH TUBE AT THIS TIME. FLUSHED TUBE WITH WATER BEFORE AND AFTER FEEDING. PT TOLERATED WELL. HOB ELEVATED. WILL CONTINUE TO MONITOR.
[2016-10-29 08:00] VITALS: BP 132/78; TEMP 96.7
--- NOTE | 2016-10-29 09:48 | NUR ---
MEDS GIVEN VIA PEG TUBE. NO RESIDUAL NOTED AND 1/2 CAN OF ENSURE PROVIDED VIA PEG TUBE. PT TOLERATED WELL. PT TURNED TO R SIDE REQUESTED. [address].
--- NOTE | 2016-10-29 10:57 | NUR ---
TRACH CLEANED. PT TOLERATED WELL. WILL CHECK ON HER AT LATER TIME.
--- NOTE | 2016-10-29 14:34 | NUR ---
1/2 ENSURE PROVIDED. NO RESIDUAL PRIOR TO FEEDING. PT TOLERATED WELL. HOB ELEVATED.
--- NOTE | 2016-10-29 15:00 | NUR ---
PT UP TO CHAIR AT THIS TIME. NAD NOTED.
[2016-10-29 20:28] VITALS: BP 152/86; TEMP 97.4
--- NOTE | 2016-10-29 21:31 | NUR ---
NO RESIDUAL NOTED FROM PEG TUBE AT THIS TIME. ALL SCHEDULED MEDS WERE CRUSEHD AND ADMINISTERED THROUGH TUBE. FEEDING WITH 1/2 CAN OF GLUCERNA (120 MLS) ALSO ADMINISTERED AT THIS TIME. TUBE WAS FLUSHED BEFORE AND AFTER FEEDING. PT TOLERATED WELL. HOB ELEVATED. FAMILY IS AT THE BEDSIDE. WILL CONTINUE TO MONITOR.
[2016-10-30 08:00] VITALS: BP 166/70; TEMP 97.5
--- NOTE | 2016-10-30 09:00 | NUR ---
AM MEDS CRUSHED AND GIVEN VIA PEG TUBE. NO RESIDUAL NOTED. FEEDING PROVIDED. PT UP TO CHAIR AT THIS TIME. NAD NOTED. FAMILY AT BS.
[2016-10-30 19:53] VITALS: BP 120/80; TEMP 98.5
--- NOTE | 2016-10-30 21:39 | NUR ---
NO RESIDUAL NOTED FROM PEG TUBE AT THIS TIME. SCHEDULED MEDS WERE ADMINISTERED THROUGH TUBE. 1/3 CAN OF ENSURE ALSO ADMINISTERED AT THIS TIME. TUBE WAS FLUSHED WITH WATER BEFORE AND AFTER FEEDING. PT TOLERATED WELL. MOUTH CARE WAS ALSO DONE AT THIS TIME. HOB ELEVATED. FAMILY IS AT THE BEDSIDE. WILL CONTINUE TO MONITOR.
--- NOTE | 2016-10-31 07:00 | NUR ---
PT SLEEPING. NAD NOTED. DAUGHTER AT BS. NO C/O VOICED.
[2016-10-31 08:23] VITALS: BP 117/73; TEMP 97.9
--- NOTE | 2016-10-31 09:30 | NUR ---
PT SLEEPING. FAMILY STATES WAIT UNTIL SHE WAKES UP FOR MEDICINES AND FEEDING. AT BS. [facility] WITH [facility] HAD BEEN IN TO SEE PT.
--- NOTE | 2016-10-31 11:07 | NUR ---
TRACH CARE DONE
--- NOTE | 2016-10-31 11:30 | NUR ---
IN TO PT'S ROOM. PT BEEN SLEEPING ALL MORNING. AWAKENS EASILY. NO RESIDUAL NOTED FROM PEG TUBE. 60ML OF WATER GIVEN IN PEG. 120ML OF ENSURE GIVEN. FLUSHED WITH ANOTHER 60ML OF WATER. MOUTH CARE DONE ON PT. PT TENDER ON TONGUE PT STATING HURTING BUT REFUSING PAIN MEDICATION AT THIS TIME. WILL READDRESS.
--- NOTE | 2016-10-31 15:00 | NUR ---
IN TO SEE PT. MOUTH CARE DONE. PT STATES IT HURTS REALLY BAD. INFORMED HER THAT WE HAVE TO TRY AND CLEAN EVERY COUPLE OF HOURS THEN IT WILL NOT HURT BAD. PT VERBALIZED UNDERSTANDING.
--- NOTE | 2016-10-31 16:00 | NUR ---
IN TO SEE PT. NO RESIDUAL FROM PEG. FLUSHED WITH 60ML OF WATER. 120ML OF ENSURE GIVEN. FLUSHED WITH ANOTHER 60ML OF WATER.
[2016-10-31 20:25] VITALS: BP 101/62; BP 154/59; TEMP 97.3
--- NOTE | 2016-11-01 04:37 | NUR ---
10/31/16 AT 2200MOUTH CARE COMPLETED. NO RESIDUAL NOTED VIA PEG, GAVE 1/2 CAN OF ENSURE(120ML) VIA PEG, FLUSHED BEFORE AND AFTER WITH 60ML OF WATER, PT TOLERATED WITH NO PROBLEMS. DRESSING INTACT AROUND PEG WITH NO PROBLEMS NOTED TO SITE. TRACH INTACT AND CENTRAL LINE INTACT. WILL MONITOR CLOSELY.
--- NOTE | 2016-11-01 04:39 | NUR ---
PT RESTING WITH EYES CLOSED IN POSITION OF COMFORT, NO S/S OF PAIN OR DISTRESS NOTED, WILL MONITOR CLOSELY, RAILS UP X3, CALL LIGHT IN REACH, BED IN LOW POSITION, ROBERTS PATENT DRAINING TO BEDSIDE, TRACH INTACT, PEG INTACT.
[2016-11-01 08:00] VITALS: BP 146/67; TEMP 96.9
--- NOTE | 2016-11-01 09:30 | NUR ---
OUTER TRACH CARE DONE; INNER CANNULA REMOVED AND CLEANED WITH PEROXIDE AND STERILE WATER; COLLAR CLEAN AT THIS TIME
--- NOTE | 2016-11-01 09:40 | NUR ---
NO RESIDUAL OBSERVED VIA PEG TUBE. FLUSHED WITH 60ML OF WATER. 120ML OF ENSURE GIVEN. 60ML OF WATER FLUSHED AGAIN.
--- NOTE | 2016-11-01 16:45 | NUR ---
NO RESIDUAL NOTED FROM PEG TUBE. FLUSHED WITH 60ML OF WATER. 120ML OF ENSURE GIVEN. FLUSHED WITH ANOTHER 60ML OF WATER.
[2016-11-01 20:00] VITALS: BP 97/59; TEMP 97.5
--- NOTE | 2016-11-02 01:55 | NUR ---
11/02/2016 AT 0004PT FOUND RESTING WITH EYES CLOSED, AROUSES AND DENIES ANY PAIN OR PROBLEMS, TRACH INTACT, ROBERTS PATENT DRAINING TO BEDSIDE, PEG TUBE INTACT WITH NO S/S OFINFECTION OR PROBLEMS NOTED TO SITE. APPLIED NEW DRESSING AROUND PEG SITE. NO RESIDUAL NOTED VIA PEG, ADX 1/2 CAN ENSURE PER ORDER, FLUSHED BEFORE AND AFTER WITH 60ML WATER, PT TOLERATED WITH NO PROBLEMS. FEET ELEVATED ON PILLOWS. WILL MONITOR CLOSELY, RAILS UP X3, CALL LIGHT IN REACH, BED IN LOW POSITION, ENCOURAGED DAUGHTER AND PT TO CALL NEEDED. MOUTH CARE COMPLETED.
[2016-11-02 08:00] VITALS: BP 105/61; TEMP 98.7
--- NOTE | 2016-11-02 09:16 | NUR ---
ENCOURAGED PT TO BE TURNED EVERY 2 HOURS. PT SHOOK HER HEAD NO TO NOT TURN. ENCOURAGED PT TO TURN OR GET UP IN CHAIR TO NOT GET BREAK DOWN. 1130- ATTEMPTED TO TURN PT. PT REFUSED AT THIS TIME. ENCOURGED PT TO GET UP IN CHAIR OR TO BE TURNED FROM SIDE TO SIDE. 1630- ATTEMPTED TO GET PT TO CHAIR. PT SHOOK HEAD NO AND DID NOT WANT TO BE TURNED AT THIS TIME.
--- NOTE | 2016-11-02 14:01 | NUR ---
0900- NO RESIDUAL NOTED TO PEG TUBE. AM MEDS CRSHED AND GIVEN AND 1/2 CAN ENSURE PROVIDED. PT TOLERATED WELL.
[2016-11-02 20:00] VITALS: BP 104/65; TEMP 97.5
--- NOTE | 2016-11-02 20:17 | NUR ---
Pt resting in bed. A/O at this time. No distress noted. Assessment completed. Bed in low position. Call light within reach. at bedside. Will continue to monitor.
--- NOTE | 2016-11-03 05:03 | NUR ---
Pt resting in bed. No distress noted. Mouth care performed. at bedside. No change in assessment at this time. Will continue to monitor.
[2016-11-03 08:17] VITALS: BP 118/69; TEMP 96.5
--- NOTE | 2016-11-03 10:25 | NUR ---
NO RESIDUAL NOTED TO PEG TUBE. FEEDING PROVIDED ORDERED WITH MEDS CRUSHED AND GIVEN. PT TOLERATED WELL.
--- NOTE | 2016-11-03 16:41 | NUR ---
PT TURNED AND REPOSTIONED FREQUENT ALLOWED BY PT. PT ON LEFT SIDE AT THIS TIME. ENCOURAGED PT TO TURN OR WILL ASSIST TO CHAIR.
[2016-11-03 20:00] VITALS: BP 114/71; TEMP 97.6
--- NOTE | 2016-11-03 20:37 | NUR ---
LESS THAN 30 MLS OF RESIDUAL NOTED FROM PEG TUBE AT THIS TIME. ALL SCHEDULED MEDS WERE CRUSHED AND ADMINISTERED THROUGH TUBE. FEEDING WITH 1/2 CAN OF ENSURE ALSO ADMINISTERED AT THIS TIME. FLUSHED TUBE WITH WATER BEFORE AND AFTER FEEDING. PT TOLERATED WELL. TURNED PT AT THIS TIME TO HER RIGHT SIDE. PT VOICES NO COMPLAINTS AT THIS TIME. BED IS LOCKED AND IN LOWEST POSITION WITH SIDE RAILS UP X2 AND CALL KULKARNI IS WITHIN REACH. FAMILY IS AT THE BEDSIDE. WILL CONTINUE TO MONITOR.
--- NOTE | 2016-11-04 05:00 | NUR ---
BM NOTED AT THIS TIME. PT WAS CHANGED AND TURNED TO HER LEFT SIDE. PT VOICES NO COMPLAINTS. WILL CONTINUE TO MONITOR.
[2016-11-04 08:00] VITALS: BP 109/61; TEMP 97.6
[2016-11-04 20:00] VITALS: BP 100/66; TEMP 97.4
[2016-11-05 08:00] VITALS: BP 117/67; TEMP 98.1
--- NOTE | 2016-11-05 08:50 | NUR ---
Pt's at bedside. Assessed peg tube, no drainage noted to dressing and no residual. Flushed peg tube with 60ml of water, given Ensure Enlive 120ml, and flushed with 60ml of water. Pt tolerated well.
--- NOTE | 2016-11-05 10:40 | NUR ---
Per Pt's 's request, Ativan 0.5mg and Hydrocodone 5/325mg given via peg tube and flushed with 30ml of water. Pt tolerated well. NAD noted at this time.
--- NOTE | 2016-11-05 10:55 | NUR ---
Mouth care given to Pt at this time. Moisturize rubbed on Pt's lips. Pt smiled and tolerated well.
--- NOTE | 2016-11-05 13:35 | NUR ---
Mouth care given to Patient at this time. Pt tolerated well.
--- NOTE | 2016-11-05 17:00 | NUR ---
Mouth care performed at this time. Respiratory at bedside for trach care. Pt tolerated well.
--- NOTE | 2016-11-05 18:05 | NUR ---
Reported to Dr. Byrnes Patient's concern for the area on her face to the right of her chin. Dr. Byrnes requested hospice to be notified of same and ask if a scan can be done on her face. Dr. Byrnes stated he does not want a CT scan on Patient. V/O understanding.
[2016-11-05 20:00] VITALS: BP 107/73; TEMP 97.6
[2016-11-06 08:00] VITALS: BP 111/72; TEMP 97.6
[2016-11-06 19:36] VITALS: BP 99/61; TEMP 98
[2016-11-07 07:00] VITALS: BP 80/53; TEMP 97.5
[2016-11-07 08:00] VITALS: BP 114/71; TEMP 98
--- NOTE | 2016-11-07 08:50 | NUR ---
NO RESIDUAL NOTED TO PEG TUBE. MEDS GIVEN AND 1/2 CAN ENSURE GIVEN ORDERED. PT TOLERATED WELL. HOB ELEVATED. NAD NOTED. AT BS
--- NOTE | 2016-11-07 09:22 | NUR ---
MOUTH AND TRACH CARE DONE AT THIS TIME PER RESP.
--- NOTE | 2016-11-07 13:58 | NUR ---
PT MOUTH MOISTENED WITH GEL MOISTURIZER AND WATER. PT TOLERATED WELL.
--- NOTE | 2016-11-07 14:11 | NUR ---
MOUTH CARE DONE PER RESP.
--- NOTE | 2016-11-07 14:11 | NUR ---
FEEDING PROVIDED ORDERED. PT TOLERATED WELL.
--- NOTE | 2016-11-07 16:33 | NUR ---
MOUTH CARE DONE AT THIS TIME. MOISTENED MOUTH ,TOLERATED WELL.
[2016-11-07 20:00] VITALS: BP 104/69; TEMP 97.4
--- NOTE | 2016-11-07 21:40 | NUR ---
NO RESIDUAL NOTED FROM PEG TUBE. ADMINISTERED ALL SCHEDULED MEDS THROUGH PEG TUBE AT THIS TIME INCLUDING HYDROCODE 5/325 MG FOR GENERALIZED PAIN. FEEDING ALSO ADMINISTERED AT THIS TIME WITH 1/2 CAN OF ENSURE. FLUSHED TUBE WITH WATER BEFORE AND AFTER FEEDING AND MED ADMINISTRATION. MOUTH CARE DONE AT THIS TIME. PT REFUSED TO BE TURNED. PT VOICES NO COMPLAINTS AT THIS TIME. FAMILY IS AT THE BEDSIDE. BED IS LOCKED AND IN LOWEST POSITION WITH SIDE RAILS UP X2. CALL KULKARNI IS WITHIN REACH. WILL CONTINUE TO MONITOR.
--- NOTE | 2016-11-08 00:47 | NUR ---
BED LINENS AND GOWN CHANGED AT THIS TIME. PT REFUSED MOUTH CARE AT THIS TIME.
--- NOTE | 2016-11-08 02:54 | NUR ---
ROUNDED ON PT AT THIS TIME. PT IS RESTING WITH EYES CLOSED BUT IS EASILY AROUSED. OFFERED TO TURN PATIENT AND DO MOUTH CARE. PT REFUSED BOTH. PT VOICES NO COMPLAINTS AT THIS TIME. FAMILY IS AT THE BEDSIDE. BED IS LOCKED AND IN LOWEST POSITION WITH SIDE RAILS UP X2. CALL KULKARNI IS WITHIN REACH. WILL CONTINUE TO MONITOR.
[2016-11-08 07:56] VITALS: BP 115/73; TEMP 98.4
--- NOTE | 2016-11-08 09:00 | NUR ---
MOUTH CARE DONE AT THIS TIME
--- NOTE | 2016-11-08 09:30 | NUR ---
AM MEDS GIVEN VIA G-TUBE. NO RESIDUAL WAS NOTED. FEEDING PROVIDED ORDERED. PT TOLERATED WELL. 1030- HOSPICE HERE AT THIS TIME. PT REC;D BATH PER HOSPICE. PT UP TO CHAIR AT THIS TIME. WILL MONITOR
--- NOTE | 2016-11-08 15:45 | NUR ---
PT BACK TO BED AT THIS TIME. FEEDING PROVIDED. PT STATES PAIN IS BETTER. PT REFUSED TO BE ON SIDE AT THIS TIME. PT REFUSED MOUTH CARE AT THIS TIME. AT BS.
[2016-11-08 20:00] VITALS: BP 108/70; TEMP 97.5
--- NOTE | 2016-11-08 23:40 | NUR ---
1999 AT BEDSIDE AND MOUTH CARE PREFORMED AT THIS TIME 0 FEEDING AND MOUTHCARE PREFORMED AT THIS TIME
--- NOTE | 2016-11-09 02:52 | NUR ---
0200 MOUTH CARE PREFORMED AT THIS TIME FAMILY AT BEDSIDE
--- NOTE | 2016-11-09 04:52 | NUR ---
0400 MOUTH CARE PREFORMED PT TOLERATED OKAY
--- NOTE | 2016-11-09 06:15 | NUR ---
MOUTH CARE PREFORMED AT THIS TIME FAMILY AT BEDSIDE
[2016-11-09 08:00] VITALS: BP 128/70; TEMP 97.8
--- NOTE | 2016-11-09 16:16 | NUR ---
TRACH CARE DONE BY CHRISTIANO RRT
[2016-11-09 20:00] VITALS: BP 106/69; TEMP 97.5
--- NOTE | 2016-11-10 02:53 | NUR ---
11/10/16 2221 1/2 CAN ENSURE GIVEN WITH 30ML FLUSH BEFORE AND AFTER FEEDING. PT TOLERATED WELL.CC 11/10/16 0240 PT REFUSED TO BE TURNED AT THIS TIME.MOUTHCARE GIVEN PT TOLERATED WELL.CC
[2016-11-10 08:00] VITALS: BP 115/75; TEMP 97.3
[2016-11-10 20:00] VITALS: BP 95/62; TEMP 97.4
--- NOTE | 2016-11-10 21:15 | NUR ---
PATIENTS TRACH HAS BEEN CLEANED
--- NOTE | 2016-11-11 06:23 | NUR ---
11/11/16 0620 REPOSTIONED PER PCT.MOUTH AND LIP GIVEN.NO C/O VOICED PER PATIENT.FAMILY PRESENT AT BEDSIDE.CC
[2016-11-11 08:00] VITALS: BP 109/63; TEMP 97.8
--- NOTE | 2016-11-11 09:30 | NUR ---
I/2 CAN OF ENSURE GIVEN VIA PEG.
--- NOTE | 2016-11-11 14:36 | NUR ---
TRACH CARE DONE
--- NOTE | 2016-11-11 17:30 | NUR ---
1/2 CAN OF ENSURE GIVEN VIA PEG TUBE.
[2016-11-11 20:14] VITALS: BP 107/67; TEMP 97.3
--- NOTE | 2016-11-11 22:00 | NUR ---
MEDICATION CRUSH AND GIVEN WITH 1/2 CAN OF ENSURE AT THIS TIME. PATIENT TOLERATED WELL.
[2016-11-12 08:00] VITALS: BP 118/75; TEMP 96.8
--- NOTE | 2016-11-12 12:12 | NUR ---
TRACHCARE DONE AT THIS TIME. TOLERATED WELL.
[2016-11-12 20:00] VITALS: BP 119/78; TEMP 97.3
--- NOTE | 2016-11-12 20:22 | NUR ---
1900-Received pt resting in bed with eyes closed. Family at bedside. No distress noted. Assessment completed. Peg tube noted. Trach noted. Bed in lowest position. Resp even and non labored. HOB elevated. Will continue to monitor.
[2016-11-13 07:58] VITALS: BP 100/66; TEMP 96.8
--- NOTE | 2016-11-13 08:18 | NUR ---
PT TRACHCARE AND MOUTHCARE DONE AT THIS TIME.
--- NOTE | 2016-11-13 09:00 | NUR ---
1/2 CAN ENSURE GIVEN PER PEG TUBE. MOUTH CARE Q2HRS
--- NOTE | 2016-11-13 17:00 | NUR ---
1/2 CAN OF ENSURE GIVEN PER PEG TUBE.
--- NOTE | 2016-11-13 19:30 | NUR ---
PM ASSESSMENT COMPLETED. AT BEDSIDE.
[2016-11-13 20:00] VITALS: BP 103/66; TEMP 97.3
--- NOTE | 2016-11-13 21:30 | NUR ---
PM MEDS GIVEN PER PEG TUBE. 1/2 CAN ENSURE GIVEN PER PEG.
--- NOTE | 2016-11-13 21:53 | NUR ---
PT'S STATES SHE MAY NEED SOMETHING FOR PAIN. WHEN ASKED PT DENIES PAIN. NURSE EXPLAINED TO PT SHE MAY HAVE SOMETHING IF SHE NEEDS. PT SHAKES HEAD NO.
--- NOTE | 2016-11-14 | NUR ---
PT RESTING QUIETLY. DAUGHTER AT BEDSIDE.
--- NOTE | 2016-11-14 01:50 | NUR ---
PT RESTING QUIETLY. NO DISTRESS NOTED.
[2016-11-14 08:00] VITALS: BP 95/65; TEMP 96.9
--- NOTE | 2016-11-14 10:16 | NUR ---
NO RESIDUAL NOTED PEG TUBE FEEDING PROVIDED ORDERED. PT TOLERATED WELL.
--- NOTE | 2016-11-14 15:06 | NUR ---
1200- HOSPICE AT BS. BATH PER HOSPICE. PT UP TO CHAIR AT THIS TIME. NAD NOTED. 1506- FEEDING PROVIDED WITH 1600 MEDS. PT TOLERATED WELL.
[2016-11-14 20:00] VITALS: BP 82/56; TEMP 97.5
--- NOTE | 2016-11-15 00:45 | NUR ---
11/14/16 AT 2240NO RESIDUAL NOTED VIA PEG, ADX 1/2 CAN OF ENSURE, FLUSHED BEFORE AND AFTER WITH 100ML WATER(200ML TOTAL) WITH NO PROBLEMS NOTED TO PEG SITE. TRACH SITE INTACT WITH NO PROBLEMS NOTED TO SITE, ROBERTS PATENT DRAINING TO BEDSIDE, PT REFUSED MOUTH CARE, DAUGHTER AT BEDSIDE, WILL MONITOR CLOSELY, RAILS UP, CALL LIGHT IN REACH, BED IN LOW POSITION.
[2016-11-15 08:00] VITALS: BP 95/61; TEMP 98.1
--- NOTE | 2016-11-15 10:50 | NUR ---
HOSPICE IN TO [facility]HE PT. LINENS CHANGED. PT IN CHAIR AT THIS TIME. FEEDING PROVIDED WITH MEDS. PT TOLERATED WELL.
[2016-11-15 20:20] VITALS: BP 97/68; TEMP 97.6
--- NOTE | 2016-11-16 04:37 | NUR ---
11/15/16 AT 2218NO RESIDUAL NOTED VIA PEG, ADX MEDICATION AND 1/2 CAN OF ENSURE PER ORDERS. FLUSHED BEFORE AND AFTER WITH 75ML WATER. NO PROBLEMS NOTED TO SITE, PT DID NOT WANT MOUTH CARE.
[2016-11-16 07:49] VITALS: BP 95/68; TEMP 97.6
--- NOTE | 2016-11-16 10:15 | NUR ---
TRACH NOTED WITH GREEN CRUSTED SECRETIONS IN COLLAR HERNANDES AND OUTSIDE ON SKIN BELOW TRACH EXTERNAL TRACH CARE AND INNER CANNULA CLEANED WITH PEROXIDE AND STERILE WATER. PT TOLERATED WELL.
--- NOTE | 2016-11-16 10:30 | NUR ---
NO RESIDUAL NOTED ON PEG TUBE. FLUSHED WITH 60ML OF WATER. MEDS GIVEN AND 120ML OF FEEDING. FLUSHED WITH ANOTHER 60ML OF WATER. GRAVITY FLOW SLOW.
--- NOTE | 2016-11-16 15:00 | NUR ---
PT RESTING IN CHAIR AT BS. NAD NOTED.
[2016-11-16 20:00] VITALS: BP 104/71; TEMP 97.5
--- NOTE | 2016-11-16 22:37 | NUR ---
NO RESIDUAL NOTED FROM PEG TUBE. ATTEMPTED TO FLUSH TUBE BY GRAVITY AND TUBE WOULDNT FLUSH. FLUSHED TUBE WITH 60 CC SYRINGE WITH RESISTANCE MET. MEDS CRUSHED AND ADMINISTERED THROUGH PEG TUBE. FEEDING HELD AT THIS TIME DUE TO RESISTANCE MET BY PEG TUBE. WILL CONTINUE TO MONITOR.
[2016-11-17 08:00] VITALS: BP 105/63; TEMP 97.8
--- NOTE | 2016-11-17 09:50 | NUR ---
NO RESIDUAL FROM PEG TUBE. 60 OF WATER WILL NOT FLUSH THROUGH WITH GRAVITY FORCE ENTRY DONE. 120ML OF COKE FORCED THROUGH PEG TUBE TO OPEN UP PATENCY.
--- NOTE | 2016-11-17 11:20 | NUR ---
NO RESIDUAL FROM PEG TUBE S/P COKE FOR PATENCY. 60ML OF WATER FLUSHED EASILY. 120ML OF FEEDING GIVEN PER GRAVITY FLOW SLOW. 60ML OF WATER FLUSHED EASILY AFTER FEEDING.
[2016-11-17 20:00] VITALS: BP 108/72; TEMP 97.7
--- NOTE | 2016-11-17 22:07 | NUR ---
NO RESIDUAL NOTED FROM PEG TUBE. SCHEDULED MEDS WERE CRUSHED AND ADMINISTERED THROUGH TUBE AT THIS TIME. FEEDING WITH 1/2 CAN OF ENSURE ALSO ADMINISTERED AT THIS TIME. PEG TUBE WAS FLUSHED WITH WATER BEFORE AND AFTER. PT TOLERATED WELL. PT REFUSED TO BE TURNED AT THIS TIME. WILL CONTINUE TO MONITOR.
[2016-11-18 08:00] VITALS: BP 104/60; TEMP 96.7
--- NOTE | 2016-11-18 17:11 | NUR ---
TRACH CARE DONE
[2016-11-18 20:00] VITALS: BP 103/68; TEMP 97.4
--- NOTE | 2016-11-18 23:35 | NUR ---
CHECKED PATIENTS TRACH AND AT THIS TIME IT DOES NOT NEED CLEANING . TOLD TO CALL NURSE AND TELL HER TO CALL ME IF SHE STARTS COUGHING REALLY BAD AND NEEDS TO BE SUCTIONED OR NEEDS TO BE CLEANED DURING THE NIGHT
--- NOTE | 2016-11-19 02:14 | NUR ---
11/18/16 AT 2218NO RESIDUAL NOTED VIA PEG, 1/2 CAN ENSURE AND MEDICATION GIVEN VIA PEG, FLUSHED BEFORE AND AFTER WITH 75ML WATER, TOLERATED WITH NO PROBLEMS. MOUTH CARE COMPLETED AND PT REPOSITIONED TO HER BACK FROM HER L SIDE, FAMILY AT BEDSIDE, ENCOURAGED TO CALL NEEDED, RAILS UP X3, CALL LIGHT IN REACH, BED IN LOW POSITION.
[2016-11-19 08:00] VITALS: BP 97/62; TEMP 96.8
[2016-11-19 20:39] VITALS: BP 103/59; TEMP 98
--- NOTE | 2016-11-19 21:14 | NUR ---
2110PT FOUND RESTING IN POSITION OF COMFORT ON HER BACK WITH EYES CLOSED, AROUSES AND DENIES ANY PROBLEMS, NO S/S OF DISTRESS NOTED, ROBERTS PATENT DRAINING TO BEDSIDE, TRACH INTACT, REPOSITIONED PT TO R SIDE WITH FEET ELEVATED ON PILLOW, WILL MONITOR, RAILS UP X3, CALL LIGHT IN REACH, BED IN LOW POSITION, FAMILY AT BEDSIDE, ENCOURAGED TO CALL NEEDED.
--- NOTE | 2016-11-20 01:38 | NUR ---
11/19/16 AT 2140PT AROUSES TO [employer]ING CALLING HER NAME, DENIES ANY PAIN OR NEEDS, DAUGHTER AT BEDSIDE. NO RESIDUAL NOTED VIA PEG, ADX ENSURE 1/2 CAN, FLUSHED BEFORE AND AFTER WITH 80ML WATER, 20ML WATER USED TO GIVE MEDICATION. TOLERATED WITH NO PROBLEMS. MOUTH CARE COMPLETED, DRESSING AROUND PEG CHANGED. WILL MONITOR, RAILS UP X3, CALL LIGHT IN REACH, BED IN LOW POSITION, ENCOURAGED TO CALL NEEDED.
[2016-11-20 08:00] VITALS: BP 109/68; TEMP 96.7
--- NOTE | 2016-11-20 19:30 | NUR ---
PT RESTING SUPINE. PT'S AT BEDSIDE. RESP PERFORMING TRACHE CARE. PT TOLERATING WITHOUT DISTRESS. ROBERTS CATH INTACT WITH RINE DRAINING. VITAL SIGNS STABLE. O2 SAT IS 98 PERCENT.
[2016-11-20 19:55] VITALS: BP 99/67; TEMP 97.8
--- NOTE | 2016-11-20 21:13 | NUR ---
PM ASSESSMENT COMPLETED. PEG DRESSING IS CLEAN AND DRY. FLUSHED WITH 75 ML OF H2O AND 1/2 CAN OF ENSURE GIVEN. FLUSHED AFTER WITH 75 H2O. NO DIFFICULTY WITH FEEDING. MOUTH CARE GIVEN. PT AROUSES EASILY AND SMILES. INSTRUCTED TO CALL FOR ANY ASSISTANCE. VOICED UNDERSTANDING.
--- NOTE | 2016-11-20 21:59 | NUR ---
TRACH CARE WAS PREFORMED AT 1999, PT TOLERATED IT FINE. WAS IN ROOM AT THIS TIME. CLEANED TRACH OUT AND PLACED IT BACK IN
--- NOTE | 2016-11-21 | NUR ---
ROUNDS MADE. DAUGHTER AT BEDSIDE. PT SWINGBED STATUS. PT RESTING WITH RESP EVEN AND UNLABORED.
--- NOTE | 2016-11-21 02:41 | NUR ---
PT TURNED LEFT SIDE.
[2016-11-21 07:56] VITALS: BP 114/73; TEMP 97.8
--- NOTE | 2016-11-21 11:15 | NUR ---
PT TRACH CARE DONE AT THIS TIME.
[2016-11-21 20:08] VITALS: BP 99/68; TEMP 97.5
--- NOTE | 2016-11-21 21:55 | NUR ---
NO RESIDUAL NOTED FROM PEG TUBE. SCHEDULED MEDS WERE CRUSHED AND ADMINISTERED THROUGH PEG AT THIS TIME. FEEDING WITH 1/2 CAN OF ENSURE ALSO ADMINISTERED AT THIS TIME. PEG TUBED FLUSHED WITH WATER BEFORE AND AFTER FEEDING. PT TOLERATED WELL. PT ALSO TURNED AT THIS TIME. WILL CONTINUE TO MONITOR.
[2016-11-22 08:21] VITALS: BP 107/75; TEMP 96.6
--- NOTE | 2016-11-22 14:57 | NUR ---
TRACH CARE DONE
--- NOTE | 2016-11-22 16:00 | NUR ---
G TUBE FEEDING DONE X2. G TUBE DRESSING CHARGED.
[2016-11-22 20:28] VITALS: BP 90/60; TEMP 97.8
--- NOTE | 2016-11-22 21:22 | NUR ---
1/2 can ensure given per peg tube as ordered, pm meds crushed and given per peg tube. at bedside. pt refuses pm mouth care.
--- NOTE | 2016-11-23 05:58 | NUR ---
PT CONTINUES TO REST. NOT DISTURBED.
[2016-11-23 08:00] VITALS: BP 90/64; TEMP 97.8
--- NOTE | 2016-11-23 09:00 | NUR ---
PATIENT WITH PEG TUBE CHECKED FOR RESIDUAL NON NOTED GIVEN 1/2 CAN ENSURE FLUSHED WITH H20 TOLERATED WELL. HAS POSITIVE BS. MEDS ALSO GIVEN VIA G-TUBE. MOUTH CARE ALSO GIVEN.
--- NOTE | 2016-11-23 10:14 | NUR ---
HOSPICE HERE AT THIS TIME GIVEN BATH LINENS CHANGED PATIENT UP IN CHAIR.
--- NOTE | 2016-11-23 16:15 | NUR ---
FEEDING PROVIDED WITH 1600 MEDS. PT TOLERATED WELL. PT IN CHAIR AT THIS TIME WITH FAMILY AT .
[2016-11-23 20:00] VITALS: BP 89/57; TEMP 98
--- NOTE | 2016-11-23 20:29 | NUR ---
TRACH CARE WAS DONE AT 2015, TRACH WAS CLEAN EXCEPT VERY BOTTOM
--- NOTE | 2016-11-24 03:23 | NUR ---
11/23/16 AT 2200PT RESTING WITH EYES CLOSED, AROUSES AND DENIES ANY PAIN OR PROBLEMS. ROBERTS PATENT DRAINING TO BEDSIDE, TRACH INTACT, PEG INTACT. NO RESIDUAL NOTED VIA PEG, GAVE 1/2 CAN OF ENSURE AND FLUSHED BEFORE AND AFTER WITH 70ML WATER. MOUTH CARE COMPLETED, PT DOES NOT WANT TO BE TURNED, FEET ELEVATED OFF OF BED ON PILLOW, DRESSING TO PEG SITE CHANGED WITH NO PROBLEMS NOTED. WILL MONITOR, RAILS UP X3, CALL LIGHT IN REACH, BED IN LOW POSITION, ENCOURAGED TO CALL NEEDED.
[2016-11-24 08:00] VITALS: BP 108/66; TEMP 97.9
--- NOTE | 2016-11-24 09:12 | NUR ---
JOEL WITH HOSPICE HERE AT THIS TIME. PT BATHED AND LINENS CHANGED PER HOSPICE.
--- NOTE | 2016-11-24 09:15 | NUR ---
NO RESIDUAL NOTED. 1/2 ENSURE PROVIDED ORDERED VIA PEG TUBE. PT TOLERATED WELL. 1030- PT UP TO CHAIR AT THIS TIME.
--- NOTE | 2016-11-24 13:15 | NUR ---
1/2 CAN ENSURE PROVIDED AT THIS TIME. PT TOLERATED WELL. PT TURNED ON SIDE AT THIS TIME.
--- NOTE | 2016-11-24 20:09 | NUR ---
TRACH CARE WAS DONE AT 1999, SECRETIONS WERE GREEN AND OZING OUT OF BOTTOM OF TRACH, TOOK INNER CANNULA OUT AND CLEANED IT, IT HAD GREEN SECRETIONS INIT WELL
[2016-11-24 20:42] VITALS: BP 100/64; TEMP 97.9
--- NOTE | 2016-11-25 04:20 | NUR ---
11/24/16 AT 2230NO RESIDUAL NOTED VIA PEG, ADX MEDICATION AND 1/2 CAN ENSURE VIA PEG, FLUSHED BEFORE AND AFTER WITH 70ML WATER. PT REFUSED MOUTH CARE. REPOSITIONED TO HER BACK, FEET ELEVATED OFF OF BED ON PILLOW, DAUGHTER AT BEDSIDE, TRACH INTACT WITH NO PROBLEMS NOTED TO SITE, PEG INTACT WITH NO PROBLEMS NOTED TO SITE, ROBERTS PATENT DRAINING TO BEDSIDE. WILL MONITOR CLOSELY, RAILS UP X3, CALL LIGHT IN REACH, BED IN LOW POSITION, ENCOURAGED PT AND FAMILY TO CALL NEEDED.
[2016-11-25 07:50] VITALS: BP 98/65; TEMP 97.2
--- NOTE | 2016-11-25 09:20 | NUR ---
NO RESIDUAL PER PEG TUBE. 1 CAN FEEDING, 30CC FLUSH BEFOER AND AFTER, PT TOLERATED WELL.
--- NOTE | 2016-11-25 09:47 | NUR ---
MOUTHCARE ATTEMPT, PT UNABLE TO TOLERATE, WILL REEVALUATE, AND ATTEMPT OTHER MEASURES
--- NOTE | 2016-11-25 10:00 | NUR ---
BATH GIVEN BY HOSPICE
--- NOTE | 2016-11-25 10:30 | NUR ---
SPOKE WITH HOSPICE NURSE ABOUT GETTING PT SOMETHING TO HELP CLEAN MOUTH
--- NOTE | 2016-11-25 10:50 | NUR ---
[facility], ROBERTS CATH CHANGE, 16FR CATH INSERTED USING ASEPTIC TECH.
--- NOTE | 2016-11-25 11:48 | NUR ---
TRACH DONE PER R.T., GEL MOIST. APPLIED TO INSIDE OF PTS MOUTH, TOLERATED WELL
--- NOTE | 2016-11-25 14:18 | NUR ---
TRACH CARE DONE BY DEEDEE SMILEY,INDIAN NANNY AROUND 11AM
--- NOTE | 2016-11-25 14:20 | NUR ---
[facility] DROPPED MEDS BY (PREDNISONE, OMEPROZOLE, MAGIC MOUTHWASH, STERILE WATER AND HYDRO PEROXIDE
--- NOTE | 2016-11-25 16:10 | NUR ---
1CAN ENSURE SUBSTITUTE GIVEN, 30CC BEFORE AND AFTER. GEL MOISTURIZER APPLIED TO INSIDE OF MOUTH. HOB UP
--- NOTE | 2016-11-25 18:15 | NUR ---
MOUTHCARE DONE, GEL MOISTURIZER APPLIED. PT TOLERATED WELL
[2016-11-25 19:46] VITALS: BP 97/65; TEMP 97.6
--- NOTE | 2016-11-25 21:00 | NUR ---
MEDICATION CRUSHED AND MIXED WITH ENSURE GIVEN VIA PEG TUBE. ORAL MOUTH CARE GIVEN AND PATIENT REPOSITONED ON TO HER LEFT SIDE.
[2016-11-26 07:30] VITALS: BP 125/76; TEMP 97.8
--- NOTE | 2016-11-26 19:31 | NUR ---
1100 Feeding of 8 oz. Ensure given per PEG. 120 cc. additional H2O given as flush. 120 cc of cranberry juice given with meds as instructed. Placement checked per auscultation prior to feeding. 1845 A second can of Ensure given with 120 cc additional water. PEG tube placement checked via ausculatation before feeding. Asked nurse in report to add an additional 2-4 oz of Ensure at next 2-3 feedings for a total of 8 oz. Pt. became easily distended during day shift feedings. Did not want to cause abdominal discomfort. Nurse agreed that she would try to offer.
[2016-11-26 20:07] VITALS: BP 100/52; TEMP 97.6
--- NOTE | 2016-11-26 21:24 | NUR ---
NO RESIDUAL NOTED FROM PEG TUBE. ALL SCHEDULED MEDS WERE CRUSHED AND ADMINISTERED THROUGH PEG TUBE AT THIS TIME. FEEDING WITH 1 CAN OF ENSURE ALSO ADMINISTERED AT THIS TIME WITH PEG TUBE FLUSHED WITH WATER BEFORE AND AFTER FEEDING. PT TOLERATED WELL. PT WAS TURNED AND HOB ELEVATED. MOUTH CARE WAS ALSO DONE AT THIS TIME. PT VOICES NO COMPLAINTS AT THIS TIME. IS AT THE BEDSIDE. BED IS LOCKED IN LOWEST POSITION WITH SIDE RAILS UP X2. CALL KULKARNI IS WITHIN REACH. WILL CONTINUE TO MONITOR.
--- NOTE | 2016-11-27 07:40 | NUR ---
AM ASSESSMENT COMPLETE. DAUGHTER AT BS
[2016-11-27 07:57] VITALS: BP 101/62; TEMP 98
--- NOTE | 2016-11-27 09:30 | NUR ---
MEDS CRUSHED GIVEN VIA PEGTUBE, NO RESIDUAL NOTED TO PEGTUBE NOTED. FLUSHED BEFORE AND AFTER MEDS AND FEEDING, 1 CAN GENERIC ENSURE GIVEN, PT TOLERATED WELL. ORAL CAVITY CARE DONE. TRACH CARE DONE PER R.T., PT SUCTIONED VIA TRACH PER R.T.
--- NOTE | 2016-11-27 12:00 | NUR ---
ORAL CAVITY CARE DONE, AT BS
--- NOTE | 2016-11-27 14:25 | NUR ---
PT GIVEN BATH BY PCT/VONDA. PT TOLERATED WELL. PT HAS SKIN TEAR TO R BUTTOCK, BLEEDING NOTED TO CHUX. PT DOESNT WANT TO BE TURNED ONTO R SIDE, PILLOW PLACED UNDER R BUTTOCK. WILL CONT TOO MONITOR SITE. ORAL CAVITY CARE DONE. HOB UP
--- NOTE | 2016-11-27 16:30 | NUR ---
NO RESIDUAL PER FEEDING TUBE, 1 CAN FEEDING GIVEN, W/FLUSH. TOLERATED WELL. ORAL CAVITY CARE DONE. HOB UP. FAMILY AT BS. HOSPICE NURSE CONTACTED, NO BM NOTED IN MANY DAYS.
[2016-11-27 20:00] VITALS: BP 100/67; TEMP 97.6
--- NOTE | 2016-11-27 20:10 | NUR ---
RESPIRATORY AT BEDSIDE DOING TRACH CARE.
--- NOTE | 2016-11-27 20:14 | NUR ---
SKIN TEAR NOTED TO RIGHT BUTTOCK. NEOSPORIN APPLIED TO AREA AND COVERED WITH TELFA DRESSING. PEG TUBE DRESSING ALSO CHANGED AT THIS TIME. NO EDEMA OR DRAINAGE NOTED TO AREA. PT TOLERATED WELL. PT WAS ALSO TURNED AT THIS TIME. WILL CONTINUE TO MONITOR.
--- NOTE | 2016-11-27 22:03 | NUR ---
NO RESIDUAL NOTED FROM PEG TUBE - ALL SCHEDULED MEDS WERE CRUSHED AND ADMINISTERED THROUGH PEG AT THIS TIME. FEEDING WITH 1 CAN OF ENSURE ADMINISTERED AND FLUSHED WITH WATER BEFORE AND AFTER FEEDING. PT TOLERATED WELL. HOB ELEVATED. MOUTH CARE ALSO DONE AT THIS TIME WITH ORAL GEL AND WATER. PT REPOSITIONED TO HER BACK AT THIS TIME. PT VOICES NO COMPLAINTS. BED IS LOCKED AND IN LOWEST POSITION WITH SIDE RAILS UP X2. CALL KULKARNI IS WITHIN REACH. AND DAUGHTER AT THE BEDSIDE AT THIS TIME. WILL CONTINUE TO MONITOR.
--- NOTE | 2016-11-28 00:29 | NUR ---
PT TURNED AT THIS TIME TO HER RIGHT SIDE. PT VOICES NO COMPLAINTS AT THIS TIME. DAUGHTER IS AT THE BEDSIDE. WILL CONTINUE TO MONITOR.
[2016-11-28 07:56] VITALS: BP 107/72; TEMP 96.8
--- NOTE | 2016-11-28 09:00 | NUR ---
NO RESIDUAL NOTED. 1 CAN ENSURE PROVIDED. PT TOLERATED WELL.
--- NOTE | 2016-11-28 10:15 | NUR ---
HOSPICE HERE AT THIS TIME.
--- NOTE | 2016-11-28 10:50 | NUR ---
PT UP IN CHAIR AT THIS TIME.
--- NOTE | 2016-11-28 14:33 | NUR ---
PT BACK TO BED AND ON BACK AT THIS TIME. FEEDING GIVEN NO RESIDUAL NOTED PRIOR. PT TOLERATED WELL.
--- NOTE | 2016-11-28 14:35 | NUR ---
NO BOWEL MOVEMENT AFTER LAST NIGHT DOSE OF LACTULOSE. ANOTHER DOSE GIVEN AT THIS TIME.
[2016-11-28 20:11] VITALS: BP 105/69; TEMP 97.5
--- NOTE | 2016-11-29 01:20 | NUR ---
11/28/2016 AT 2048NO RESIDUAL NOTED VIA PEG, ADX CAN OF ENSURE AND FLUSHED BEFORE AND AFTER WITH 60ML WATER, ALSO ADX MEDICATIONS SEEN ON SEP. MOUTH CARE COMPLETED, PT REPOSITIONED AND TURNED TO L SIDE, TRACH INTACT, ROBERTS PATENT DRAINING TO BEDSIDE, WILL MONITOR CLOSELY, RAILS UP X3, CALL LIGHT IN REACH, BED IN LOW POSITION, FAMILY REMAINS AT BEDSIDE.
[2016-11-29 08:00] VITALS: BP 109/79; TEMP 96.6
--- NOTE | 2016-11-29 09:45 | NUR ---
HOSPICE HERE AT THIS TIME BATHING PT. LINENS CHANGED. PT IN CHAIR AT THIS TIME. RESIDUAL CHECKED AND 60CC OF DARK GREENISH/BROWN RESIDUAL NOTED. HOSPICE NOTIFIED AND AWAITING CALL BACK. 101Vickie- RAQUEL WITH HOSPICE CALLED. ORDERED TO HOLD FEEDINGS AND MEDICATIONS AND NURSE WOULD COME TO ASSESS.
--- NOTE | 2016-11-29 10:31 | NUR ---
TRACH CARE DONE
--- NOTE | 2016-11-29 12:30 | NUR ---
RAQUEL WITH HOSPICE HERE AT THIS TIME. 70CC OF DARK BROWN RESIDUAL PULLED FROM PEG TUBE PER RAQUEL AND DR SPEARS NOTIFIED PER RAQUEL. ORDER TO HOLD FEEDINGS AT THIS TIME. RAQUEL CHECKED FOR IMPACTION. SOFT BROWN STOOL NOTED. NEW ORDERS GIVEN. PT BACK TO BED AT THIS TIME AND TURNED.
--- NOTE | 2016-11-29 16:08 | NUR ---
Claire- RAQUEL WITH HOSPICE CALLED BACK, ORDERED OK TO USE PEG FOR MEDS AND TO HOLD FEEDINGS UNTIL RESIDUAL DECREASED. MEDS GIVEN AT THIS TIME. PT TURNED AND MOUTH CARE PROVIDED. PT REFUSED FURTHER MOUTH CARE
[2016-11-29 20:05] VITALS: BP 93/63; TEMP 98.1
--- NOTE | 2016-11-30 04:07 | NUR ---
11/29/2016 AT 1945PT FOUND RESTING WITH EYES CLOSED, NO S/S OF PAIN OR DISTRESS NOTED, TRACH INTACT, PEG INTACT, ROBERTS PATENT DRAINING TO BEDSIDE, FEET ELEVATED ON PILLOW AND PILLOW BETWEEN KNEES, REPOSITIONED TO HER BACK, FAMILY AT BEDSIDE, WILL MONITOR CLOSELY, RAILS UP X3, CALL LIGHT IN REACH, BED IN LOW POSITION, ENCOURAGED TO CALL NEEDED. PT HAS NOT HAD A BM SINCE PRN ENULOSE EARLIER TODAY.
--- NOTE | 2016-11-30 04:11 | NUR ---
11/30/2016 AT 0046PT RESTING WITH NO S/S OF PAIN OR DISTRESS, RESPOSITIONED TO R SIDE WITH FEET ELEVATED OFF OF BED ON PILLOW. WILL MONITOR CLOSEY, RAILS UP X3, CALL LIGHT IN REACH, BED IN LOW POSITION.
[2016-11-30 08:00] VITALS: BP 86/44; TEMP 97.1
--- NOTE | 2016-11-30 08:50 | NUR ---
RESIDUAL CHECKED AND 10ML OF GREEN GASTRIC CONTENTS RETURNED. AM MEDS AND ONE CAN OF ENSURE GIVEN VIA PEG. PT TOLERATED WELL. BATH AND LINEN CHANGE DONE PER IVY KULKARNI PCT. PT HAD SMALL BM.
--- NOTE | 2016-11-30 08:54 | NUR ---
11/30/16 0400 PT HAD SMALL SOFT BM. REPOSITIONED AND FEET ELEVATED ON PILLOW.
--- NOTE | 2016-11-30 09:02 | NUR ---
11/29/16 AT 2320PT ABD DISTENDED, 25ML BLACK RESIDUAL NOTED VIA PEG, PT STILL HAS NOT HAD A BM. ADX MEDICATIONS AND ALSO MORPHINE PRN AND LACTULOSE PRN, FLUSHED WITH 30ML WATER BEFORE AND AFTER. HELD FEEDING AFTER DISCUSSING RESIDUAL WITH CHARGE NURSE. WILL CONTINUE TO MONITOR CLOSELY, FAMILY AT BEDSIDE.
--- NOTE | 2016-11-30 11:00 | NUR ---
PT LYING IN BED WITH AT BS. NAD.
--- NOTE | 2016-11-30 13:00 | NUR ---
PT RESTING WITH EYES CLOSED AND NAD. AT BS.
--- NOTE | 2016-11-30 17:32 | NUR ---
TUBE FEEDING CHECKED FOR RESUAL NONE NOTED. MEDS AND 1 CAN OF ENSURE GIVEN.
--- NOTE | 2016-11-30 19:37 | NUR ---
ROUNDED ON PATIENT AT THIS TIME. PT IN BED RESTING WITH EYES CLOSED BUT IS EASILY AROUSED. IS AT THE BEDSIDE. PT WAS REPOSITIONED FROM HER LEFT SIDE TO HER BACK AT THIS TIME. PT VOICES NO COMPLAINTS AT THIS TIME. BED IS LOCKED AND IN LOWEST POSITION WITH SIDE RAILS UP X2. CALL KULKARNI IS WITHIN REACH. WILL CONTINUE TO MONITOR.
[2016-11-30 19:54] VITALS: BP 89/57; TEMP 98
--- NOTE | 2016-11-30 21:36 | NUR ---
NO RESIDUAL NOTED FROM PEG TUBE. ALL SCHEDULED MEDS WERE CRUSHED AND ADMINISTERED AT THIS TIME. FEEDING WITH 1 CAN OF ENSURE ALSO ADMINISTERED. PEG TUBE WAS FLUSHED BEFORE AND AFTER MED AND FEEDING ADMINISTRATION. PT TOLERATED WELL. PT WAS REPOSITIONED AT THIS TIME TO THE RIGHT SIDE WITH PILLOW UNDER FEET AND IN BETWEEN LEGS. HOB ELEVATED. MOUTH CARE DONE AT THIS TIME WITH ORAL MOISTURIZING GEL AND WATER. PT TOLERATED WELL. PT VOICES NO COMPLAINTS AT THIS TIME. BED IS LOCKED AND IN LOWEST POSITION WITH SIDE RAILS UP X2. CALL KULKARNI IS WITHIN REACH. WILL CONTINUE TO MONITOR.
--- NOTE | 2016-11-30 23:13 | NUR ---
PT REPOSITIONED AT THIS TIME TO HER BACK. PT VOICES NO COMPLAINTS. DAUGHTER IS AT THE BEDSIDE. BED IS LOCKED AND IN LOWEST POSITION WITH SIDE RAILS UP X2. CALL KULKARNI IS WITHIN REACH. WILL CONTINUE TO MONITOR.
--- NOTE | 2016-12-01 00:30 | NUR ---
PT TURNED AT THIS TIME BY PCT.
--- NOTE | 2016-12-01 02:30 | NUR ---
PT TURNED AND REPOSITIONED AT THIS TIME. PT TOLERATED WELL. DAUGHTER IS AT THE BEDSIDE. WILL CONTINUE TO MONITOR.
--- NOTE | 2016-12-01 04:47 | NUR ---
PT TURNED AND REPOSITIONED AT THIS TIME. PT TOLERATED WELL. PT VOICES NO COMPLAINTS AT THIS TIME. BED IS LOCKED AND IN LOWEST POSITION WITH SIDE RAILS UP X2. CALL KULKARNI IS WITHIN REACH. DAUGHTER IS AT THE BEDSIDE. WILL CONTINUE TO MONITOR.
--- NOTE | 2016-12-01 06:22 | NUR ---
PT TURNED AND REPOSTIONED AT THIS TIME. PT TOLERATED WELL. WILL CONTINUE TO MONITOR.
[2016-12-01 07:48] VITALS: BP 103/67; TEMP 97.8
--- NOTE | 2016-12-01 11:20 | NUR ---
TRACH CARE DONE VIA DEEDEE CHOW
--- NOTE | 2016-12-01 19:33 | NUR ---
SHIFT ASSESSMENT DONE AT THIS TIME. SEE FURTHER CHARTING. PATIENT IS AWAKE AND ALERT. IS AT THE BEDSIDE. PT VOICES NO COMPLAINTS AT THIS TIME. BED IS LOCKED AND IN LOWEST POSITION WITH SIDE RAILS UP X2. CALL KULKARNI IS WITHIN REACH. WILL CONTINUE TO MONITOR.
[2016-12-01 19:47] VITALS: BP 97/71; TEMP 97.5
--- NOTE | 2016-12-01 21:07 | NUR ---
KRISTIN CARE DONE
--- NOTE | 2016-12-01 21:57 | NUR ---
NO RESIDUAL NOTED FROM PEG. ALL SCHEDULED MEDS WERE CRUSHED AND ADMINISTERED THROUGH PEG. MORPHINE 7.5 MG ALSO ADMINISTERED AT THIS TIME FOR GENERALIZED BODY PAIN. FEEDING WITH 1 CAN OF ENSURE ALSO ADMINISTERED THROUGH PEG AT THIS TIME. PEG WAS FLUSHED BEFORE AND AFTER WITH WATER. PT TOLERATED WELL. HOB ELEVATED. MOUTH CARE ALSO DONE AT THIS TIME WITH ORAL GEL AND WATER. PT TOLERATED WELL. PT VOICES NO COMPLAINTS AT THIS TIME. IS AT THE BEDSIDE. BED IS LOCKED AND IN LOWEST POSITION WITH SIDE RAILS UP X2. CALL KULKARNI IS WITHIN REACH. WILL CONTINUE TO MONITOR.
--- NOTE | 2016-12-02 01:24 | NUR ---
PT TURNED AND REPOSITIONED AT THIS TIME. DAUGTHER AT THE BEDSIDE. PT VOICES NO COMPLAINTS AT THIS TIME. WILL CONTINUE TO MONITOR.
--- NOTE | 2016-12-02 04:07 | NUR ---
PT TURNED AND REPOSITIONED AT THIS TIME. PT VOICES NO COMPLAINTS. WILL CONTINUE TO MONITOR.
[2016-12-02 07:56] VITALS: BP 114/70; TEMP 96
--- NOTE | 2016-12-02 19:39 | NUR ---
TRACH CARE DONE
[2016-12-02 20:00] VITALS: BP 102/53; TEMP 97.8
--- NOTE | 2016-12-02 23:42 | NUR ---
12/02/16 3773 1 CAN ENSURE GIVEN FLUSHED WITH 60ML WATER.TOLERATED FEEDING WELL.CC
--- NOTE | 2016-12-03 00:18 | NUR ---
12/03/16 0015 MOUTHCARE GIVEN TO PATIENT WITH LIP CARE.TURNED AND REPOSTIONED TOLERATED WELL.FAMILY PRESENT IN ROOM.CC
--- NOTE | 2016-12-03 02:45 | NUR ---
12/03/16 0230 RESTING QUEITLY WITH EYES CLOSED RESP EVEN NONLABORED.CC
--- NOTE | 2016-12-03 04:48 | NUR ---
12/03/16 0445 PT TURNED AND REPOSTIONED. MOUTHCARE AND LIP CARE PROVIDED TOLERATED WELL.NAD NOTED.CC
[2016-12-03 08:04] VITALS: BP 108/69; TEMP 96.8
--- NOTE | 2016-12-03 08:30 | NUR ---
NO RESIDUAL FROM PEG TUBE. FLUSHED EASILY WITH 60ML OF WATER. MEDICATION GIVEN VIA PEG WITH 30ML OF WATER FLUSH. 1 CAN OF ENSURE 240ML GIVEN VIA PEG FLUSHED WITH 75ML OF WATER AFTER FEEDING. PT TOLERATED WELL. CHANGED OLD PEG DRESSING NOTED WITH DRIED MODERATE BROWN DRAINAGE TO DRESSING. CLEANED AROUND STOMA SITE WITH NS. APPLIED NEW DRAINAGE DRESSING AROUND PEG. MOUTH MOISTURIZER APPLIED TO TEETH, GUMS AND TONGUE. PT TOLERATED WELL.
--- NOTE | 2016-12-03 10:22 | NUR ---
INFORMED FROM ASHOK BURGER PCT AFTER TURNING PT. PT STILL GRIMACING AND TENSION OBSERVED IN PT'S BODY. PT STATED HURTING STILL. MEDICATION GIVEN INFORMED DAUGHTER THAT IF WITHIN AN HOUR NO RELIEVE OBSERVED TO LET ME KNOW AND I WILL CALL HOSPICE FOR FURTHER MD ORDERS
--- NOTE | 2016-12-03 11:20 | NUR ---
CHECKED ON PT. PT MORE NOTICABLE RELAXED. PT STATES NOT HURTING AND DAUGHTER STATES SHE'S LOOKS TO FEEL BETTER.
--- NOTE | 2016-12-03 13:30 | NUR ---
NO RESIDUAL NOTED IN PEG. FLUSHED WITH 60ML OF WATER. 1 CAN ENSURE 240ML FLOWED EASILY. FLUSHED WITH ANOTHER 60ML OF WATER. PT TOLERATED WELL. MOUTH CARE PERFORMED WITH MOISTURIZER AND TRIPLE OINTMENT AROUND OUTSIDE OF MOUTH. PT STATED NOT HURTING AT THIS TIME.
--- NOTE | 2016-12-03 16:00 | NUR ---
IN PT'S ROOM PERFORMING MOUTH CARE. ASSISTED ASHOK BURGER PCT TO BATH AND CHANGE PT'S GOWN. LARGE [place] OBSERVED ON ENTIRE BACK WITH REDNESS WELL ARMS AND LEGS. MOTTLING OBSERVED TO HIPS AND BUTTOCKS. PT STATES HURTING REALLY BAD. MEDICATION GIVEN VIA PEG TUBE. SEE EMAR.
--- NOTE | 2016-12-03 16:15 | NUR ---
NO RESIDUAL FROM PEG TUBE. PAIN MEDICATION GIVEN WITH 30ML OF WATER VIA PEG. FLUSHED WITH 30ML OF WATER.
[2016-12-03 20:00] VITALS: BP 116/71; TEMP 98.4
--- NOTE | 2016-12-03 22:13 | NUR ---
12/03/161934 RESP IN TO CHECK ON PATINET TRACHE CLEANED PEER RESP MONIQUE. FAMMILY PRESENT AT BEDSIDE.CC
--- NOTE | 2016-12-03 22:14 | NUR ---
12/03/16 2200 PT TURNED AND REPOSTIONED NAD NOTED. PRRESENT AT BEDSIDE. ENSURE FEEDING 1 CAN GIVEN PER PEG TUBE FLUSHED WITH 90ML WATER TOLERATED WELL.CC
--- NOTE | 2016-12-04 01:11 | NUR ---
12/04/16 0020 RESTIN QUEITLY WITH EYES CLOSED RESP EVEN NONLABORED.FAMILY AT BEDSIDE.CC
--- NOTE | 2016-12-04 02:44 | NUR ---
12/04/16 8041 PT TURNED AND REPOSTIONED TO RIGHT SIDE TOLERATED WELL.MOUTH AND LIP CARE DONE.PT DENIED ANY PAIN AT THIS TIME.FAMILY AT BEDSIDE.CC
--- NOTE | 2016-12-04 06:08 | NUR ---
12/04/16 0600 AWAKEN UPON ENTRY TO ROOM,PT TURNED AND REPOSTIONED.MOUTHCARE DONE.PT ASKED IF SHE WOULD LIKE SOMETHING FOR PAIN PT SHOOK LUCRECIA HEAD NO.PT RESTING QUEITLY WITH EYES CLOSED NAD NOTED.CC
[2016-12-04 08:00] VITALS: BP 94/57; TEMP 97.5
--- NOTE | 2016-12-04 09:46 | NUR ---
NO RESIDUAL NOTED FROM PEG TUBE. FLUSHED EASILY WITH 60ML OF WATER. MEDICATION GIVEN WITH 30ML OF WATER. 1 CAN OF ENSURE GIVEN 240ML. FLUSHED WITH 60ML OF WATER. MOUTH CARE DONE AT THIS TIME. PT TURNED RIGHT SIDE. PT TOLERATED WELL. AT BS.
--- NOTE | 2016-12-04 12:30 | NUR ---
PT PLACED ON BACK AT THIS TIME.
--- NOTE | 2016-12-04 14:20 | NUR ---
NO RESIDUAL PER PEG. FLUSHED WITH 60ML OF WATER. PAIN MEDICATION GIVEN WITH 30ML OF WATER. 1 CAN ENSURE 240ML FLOWED FREELY. FLUSHED WITH 60ML OF WATER. PT TURNED AT THIS TIME.
--- NOTE | 2016-12-04 17:01 | NUR ---
PT NOTED WITH HEAVY BREATHING. TRACH CARE DONE INCLUDING CLEANING INNER CANNULA PER PROTOCOL. PT DENIES NEED FOR PAIN MEDICATION AT THIS TIME. TURNED PT ON BACK AT THIS TIME.
--- NOTE | 2016-12-04 18:44 | NUR ---
PT TURNED TO RIGHT AT THIS TIME. TOLERATED WELL. DENIES ANY NEED FOR PAIN MED AT THIS TIME.
[2016-12-04 19:32] VITALS: BP 106/63; TEMP 98.2
--- NOTE | 2016-12-04 22:24 | NUR ---
12/04/16 3962 ENSURE PEG TUBE FEEDING AT GRAVITY 1 CAN ALONG WITH 100ML FLUSH. PT GIVEN ROUNTINE MEDICATIONS ALONG WITH PAIN MEDICATION. STATES GOES TO RUBBING HER FACE WHEN SHE IS HURTING.PT TURNED AND REPOSTIONED. MOUTHCARE GIVEN TOLERATED.CC
--- NOTE | 2016-12-05 00:22 | NUR ---
12/04/16 0020 RESTINQ QUEITLY WITH EYES CLOSED.NAD NOTED.FAMILY AT BEDSIDE.CC
--- NOTE | 2016-12-05 02:45 | NUR ---
12/04/16214 PT TURNED AND REPOSTIONE TO RIGHT SIDE,PT HAD SMALL BROWN STOOL.PT CLEANSED AND CHANGED TOLERATED WELL.PT RESTLESS SHOWING SIGNS OF PAIN TOLD PATIENT I WILL GET HER SOMETHING FOR PAIN.CC 12/04/16244 DSY APPLIED AROUND PEG TUBE.ALSO CLEAN DSY APPLIED AROUND TRACHE NO DRAINAGE NOTED.FAMILY MEMBER PRESENT IN ROOM.CC
--- NOTE | 2016-12-05 04:47 | NUR ---
12/05/16 0430 RESTING QUEITLY WITH EYES CLOSED RESP EVEN NONLABORED NAD NOTED.CC
--- NOTE | 2016-12-05 06:20 | NUR ---
12/05/16 0605 TURNED AND REPOSTIONED,MOUTHCARE GIVEN.PT REFUSED PAIN MEDICATION AT THIS TIME. FAMILY PRESENT IN ROOM.CC
--- NOTE | 2016-12-05 07:00 | NUR ---
PT LYING IN BED RESTING WITH FAMILY AT BS.
[2016-12-05 07:54] VITALS: BP 118/69; TEMP 98.1
--- NOTE | 2016-12-05 08:00 | NUR ---
ATTEMPTED TO SUCTION AROUND TRACH VIA YONKER. PT NEEDS DEEP SUCTION AND TRACH CARE. RT NOTIFIED. PT GRIMMACING. FAMILY REQUESTED PAIN MEDS TO BE GIVEN
--- NOTE | 2016-12-05 08:30 | NUR ---
PT TURNED ON BACK. NO RESIDUAL NOTED FROM PEG. AM MEDS GIVEN VIA PEG ALONG WITH PAIN MED AND ONCE CAN OF ENSURE. RT AT BS FOR TRACH CARE AND DEEP SUCTIONING. MOUTH CLEANED WITH SWAB, MAGIC MOUTH WASH APPLIED TO INSIDE MOUTH. GEL MOISTURIZER APPLIED TO LIPS. PT TOLERATED ALL WELL.
--- NOTE | 2016-12-05 09:02 | NUR ---
TRACH DONE BY DEEDEE SMILEY,LINING STAMPER
--- NOTE | 2016-12-05 09:06 | NUR ---
[facility] IN TO GIVE PT A BATH
--- NOTE | 2016-12-05 15:11 | NUR ---
NO RESIDUAL NOTED IN PEG. FEEDING PROVIDED. PT GRIMMACING AND STATED SHE NEEDS SOMETHING FOR PAIN, ROXANOL GIVEN ORDERED. PT TOLERATED WELL.
[2016-12-05 20:06] VITALS: BP 112/75; TEMP 97.7
[2016-12-06 08:00] VITALS: BP 115/67; TEMP 98.1
--- NOTE | 2016-12-06 09:30 | NUR ---
NO RESIDUAL NOTED FROM PEG. AM MEDS GIVEN ALONG WITH ONE CAN OF ENSURE VIA PEG. PT TOLERATED WELL. PT RESITNG WELL WITH NO GRIMMACING OR MOANING. SITTER AT BS. MOUTH CARE DONE.
--- NOTE | 2016-12-06 11:09 | NUR ---
TRACH CARE DONE AT 1030
--- NOTE | 2016-12-06 14:24 | NUR ---
PT REQUEST PAIN MEDS. PT GRIMMACING AND DOESN'T WANT TO BE TURNED AT THIS TIME. PAIN MEDS GIVEN ORDERED. FEEDING PROVIDED. NO RESIDUAL NOTED PRIOR TO ONE CAN ON ENSURE. PT TOLERATED WELL.
--- NOTE | 2016-12-06 17:00 | NUR ---
PT REFUSED FOR PT TO BE TURNED AT THIS TIME DUE TO NO PAIN AT THIS TIME AND WANTED HER LEFT ALONE.
--- NOTE | 2016-12-06 19:00 | NUR ---
BEDSIDE REPORT RECEIVED FROM ZOHRA HICKS RN. HEP LOCK IN RIGHT AC RED AND SWOLLEN DC'D. BANDAID APPLIED.
[2016-12-06 20:19] VITALS: BP 100/63; TEMP 97.8
--- NOTE | 2016-12-06 20:39 | NUR ---
TRACH CARE DONE PER RT TAE.
--- NOTE | 2016-12-06 21:32 | NUR ---
REMOVED INNER CANNULA CLEANED, AND PLACED BACK IN TRACH. TRACH LOOKS CLEANED AND WELL MAINTAINED. SPO2 97%.
--- NOTE | 2016-12-06 23:00 | NUR ---
NO RESIDUAL NOTED. PEG TUBE FLUSHED WITH 60 ML OF WATER. MEDS CRUSHED AND GIVEN WITH ENSURE VIA PEG, THEN FLUSHED WITH 60 ML OF WATER. PATIENT TOLERATED WELL. ORAL CARE GIVEN AT THIS TIME.
--- NOTE | 2016-12-07 08:00 | NUR ---
NO RESIDUAL PER PEG. FLUSHED WITH 60ML OF WATER. MEDICATIONS GIVEN PER PEG. 1 CAN ENSURE 240ML GIVEN. FLUSHED WITH ANOTHER 60ML OF WATER. BED LINENS CHANGED WITH ASSISTANCE FROM ASHOK BURGER, PCT AND PT TURNED TO RIGHT SIDE AT THIS TIME. FAMILY AT BS.
[2016-12-07 08:24] VITALS: BP 115/76
--- NOTE | 2016-12-07 10:19 | NUR ---
TRACH CARE DONE
--- NOTE | 2016-12-07 12:30 | NUR ---
PT RESTING IN BED. NO S/S OF PAIN. NAD NOTED.
--- NOTE | 2016-12-07 14:00 | NUR ---
PT RESTING IN BED WITH HAND TOUCHING MOUTH. SHAKES HEAD NO TO PAIN. KEEPS EYES CLOSED UNLESS NAME CALLED. PAIN MEDICATION GIVEN. NO RESIDUAL PER PEG. FLUSHED WITH 60ML OF WATER. 1 CAN ENSURE 240ML GIVEN. FLUSHED WITH ANOTHER 60ML OF WATER.
--- NOTE | 2016-12-07 16:40 | NUR ---
IN PT'S ROOM TO GIVE MEDICATION. PT OBSERVED RUBBING MOUTH, GRIMACING WHILE SWALLOWING. PT OBSERVED WITH TENSE MUSCLES WITHIN FACE. PT DENIES PAIN. MEDICATION GIVEN.
--- NOTE | 2016-12-07 18:31 | NUR ---
TRACH CARE WAS DONE AT 18:30, WAS BARELY ANY SECRETIONS IN TRACH BUT WENT AHEAD AND CLEANED IT
[2016-12-07 20:45] VITALS: BP 100/61; TEMP 98.7
--- NOTE | 2016-12-08 07:40 | NUR ---
NO RESIDUAL PER PEG. FLUSHED WITH 60ML OF WATER. MEDICATIONS GIVEN. 1 CAN OF ENSURE 240ML GIVEN. FLUSHED WITH ANOTHER 60ML OF WATER. ROXANOL GIVEN AT THIS TIME. SEE EMAR.
[2016-12-08 07:54] VITALS: BP 126/72; TEMP 98.1
--- NOTE | 2016-12-08 10:00 | NUR ---
PT RESTING COMFORTABLY.
--- NOTE | 2016-12-08 12:30 | NUR ---
PT RESTING COMFORTABLY. NODS HEAD FEELS OK. DENIES ANY PAIN.
--- NOTE | 2016-12-08 15:49 | NUR ---
NO RESIDUAL PER PEG. FLUSHED WITH WATER. MED GIVEN 1 CAN ENSURE GIVEN. FLUSHED WATER AGAIN. PT REFUSED TURNING. ROXANOL GIVEN. SEE MED SHEET.
[2016-12-08 20:18] VITALS: BP 123/78; TEMP 98.1
--- NOTE | 2016-12-08 21:21 | NUR ---
TRACH CARE PREFORMED AT 191, NO SECRETIONS IN TRACH BUT CLEANED IT ANYWAYS
--- NOTE | 2016-12-09 03:51 | NUR ---
12/08/16 AT 2210NO RESIDUAL NOTED VIA PEG, 1 CAN ENSURE AND MEDS GIVEN VIA PEG, FLUSHED BEFORE AND AFTER WITH 60ML WATER, PT TOLERATED WITH NO PROBLEMS. MOUTH CARE COMPLETED.
--- NOTE | 2016-12-09 03:53 | NUR ---
12/09/16 AT 0030PT REPOSITIONED AND TURNED TO R SIDE(WAITED ON PRN PAIN MED TO START WORKING BEFORE TURNING PT), FEET ELEVATED ON PILLOW, HOB ELEVATED, PEG AND TRACH INTACT, ROBERTS PATENT DRAINING TO BEDSIDE, WILL MONITOR CLOSEY, NO DISTRESS, RAILS UP X3, CALL LIGHT IN REACH, BED IN LOW POSITION, FAMILY AT BEDSIDE,ENCOURAGED TO CALL NEEDED.
--- NOTE | 2016-12-09 03:56 | NUR ---
PT REPOSITIONED AND PLACED ON HER BACK, FEET ELEVATED ON PILLOW, WILL MONITOR CLOSELY, NO DISTRESS NOTED, FAMILY REMAINS AT BEDSIDE.
[2016-12-09 08:03] VITALS: BP 120/86; TEMP 97
--- NOTE | 2016-12-09 09:33 | NUR ---
TRACH CARE DONE BY LG KEATING CH.
--- NOTE | 2016-12-09 15:21 | NUR ---
0900- NO RESIDUAL NOTED IN PEG. FEEDING AND AM MEDS PROVIDED AND MOUTH CARE DONE. 1500- NO RESIDUAL NOTED IN PEG. FEEDING AND MEDS GIVEN. PT TOLERATED WELL.
[2016-12-09 20:00] VITALS: BP 184/85; TEMP 97
--- NOTE | 2016-12-09 20:58 | NUR ---
REMOVED AND CLEANED INNER CANNULA. BRUSHED OUT THICK, DRY GREENISH-BROWN SECRETIONS FROM INNER CANNULA. SPO2 ON ROOM AIR 95%. BBS ARE DIMINSHED. PT TOLERATED TX WELL W/O NO NOTED COMPLICATIONS.
[2016-12-10 08:00] VITALS: BP 115/68; TEMP 98.1
--- NOTE | 2016-12-10 16:22 | NUR ---
0900- AM MEDS GIVEN WITH FEEDING. NO RESIDUAL NOTED. PT TOLERATED WELL. RESP I DOING TRACH AND MOUTH CARE. 1600-MEDS AND FEEDING GIVEN. PT TOLERATED WELL.
--- NOTE | 2016-12-10 18:29 | NUR ---
PT FAMILY AT BS. PT GRIMMACING IN PAIN HOLDING FAMILY'S HAND. PAIN MEDS GIVEN ORDERED.
[2016-12-10 20:00] VITALS: BP 113/75; TEMP 96.6
[2016-12-11 08:00] VITALS: BP 106/69; TEMP 97.8
--- NOTE | 2016-12-11 10:35 | NUR ---
0930- AM MEDS GIVEN VIA G TUBE, 1 CAN ENSURE GIVEN ORDERED, NO RESIDUAL NOTED PRIOR TO FEEDING. PT TOLERATED WELL. PT HOLDING ON TO SIDE RAIL, EYES TIGHTLY CLOSED AND GRIMMACING. ASKED PT IF SHE WAS IN PAIN AND PT NODS HEAD YES. MEDS GIVEN ORDERED. MOUTH CARE DONE. PT ON LEFT SIDE AT THIS TIME
--- NOTE | 2016-12-11 16:00 | NUR ---
FEEDING HELD DUE TO RESIDUAL GREATER THAN 40CC.
[2016-12-11 20:58] VITALS: BP 123/79; TEMP 97.6
--- NOTE | 2016-12-12 01:37 | NUR ---
(LATE ENTRY) CLEANED INNER CANNULA AND CHANGED DRESSING. BBS: DIMINSHED. PT TOLS WELL.
[2016-12-12 08:00] VITALS: BP 103/61; TEMP 97.5
--- NOTE | 2016-12-12 08:48 | NUR ---
TRACH CARE DONE BY SYLVESTER CHARLESRN
[2016-12-12 20:00] VITALS: BP 106/65; TEMP 98.8
--- NOTE | 2016-12-12 20:34 | NUR ---
RT CALLED TO ROOM FOR LOW SPO2. RT SUCTIONED PATIENT ORAL AND DEEP SUCTIONED TRACH. TRACH CARE WAS DONE AT THIS TIME ALSO. SPO2 STILL LOW. ZOHREH CALLING HOSPICE NURSE AT THIS TIME. NO DISTRESS NOTED IN PATIENT.
--- NOTE | 2016-12-12 22:50 | NUR ---
12/12/162014 PT VITAL SIGNS TAKEN PT HAVING PERIODS OF APNEA HEART RATE INCREASING TO 130.O2 SATS 70-80 PERCENT.RESPIRATORY NOTIFIED.RSPIRATORY SUCTIONED BUT DIDNOT GET OUT ANY SECRETIONS.TRACHE TUBE CLEAN.CC 12/12/162019 [facility] NOTIFIED OF CHANGE IN PATIENT STATUS OXYGEN DROPPING.HOSPICE SAID TO GO AHEAD AND PUT OXYGEN ON PATIENT.HOSPICE SAID THAT SHE WILL BE COMING IN TO SEE PATIENT BECAUSE OF CHANGE OF STATUS.FAMILY AT BEDSIDE.CC 12/12/162034 RESPIRATORY PLACED OXYGEN ON PATIENT TRACHE AT THIS TIME.OXYGEN REMAINS AT 75-80.CC 12/12/162099 HOSPICE HERE TO EVAULATE PATIENT.FAMILY PRESENT AT BEDSIDE.OXYGEN CHECKED OXYGEN REMAINS 70-80 HEART RATE 130.HOSPICE CARE NURSE PATIENT FEET ARE COLD AND MOTTLING.HOSPICE STAYED WITH PATIENT AND FAMILY.CC 12/12/162244 HOSPICE NURSE LEFT SHE SAID TO CALL IF WE NEED HER FOR ANYTHING.CC
--- NOTE | 2016-12-13 01:45 | NUR ---
12/13/16 0140 RESTING QUEITLY RESP SHALLOW WITH OCCASIONAL APNEA EPISODES.DAUGHTERS PRESENT IN ROOM.CC
--- NOTE | 2016-12-13 03:23 | NUR ---
12/13/16 0320 GEL MOISTURIZER APPLIED TO LIPS.PT SHOWS SIGNS OF PAIN IN FACE.PT MEDICATED.FAMILY PRESENT AT BEDSIDE.CC
--- NOTE | 2016-12-13 04:36 | NUR ---
12/13/16 9810 RESTING EYES CLOSED BREATHING SHALLOW REGULAR.FAMILY AT BEDSIDE.CC
--- NOTE | 2016-12-13 05:36 | NUR ---
12/13/16 6688 FAMILY REQUESTS TO CHECK OXYGEN LEVEL.LEVEL IS 75-80 PERCENT. PT CHECKED TO SEE IF SHE HAS HAD A BOWEL MOVEMENT NO BM AT THIS TIME.FAMILY DOESNOT WANT PATIENT TURNED OR REPOSTIONED NOW OR DURING THE NIGHT.CC
--- NOTE | 2016-12-13 07:11 | NUR ---
12/13/16 0650 PATIENT DEEP SUCTIONED PER RESPIRATORY.PAIN MEDICATION GIVEN.CC
[2016-12-13 08:00] VITALS: BP 80/48; TEMP 98.6
--- NOTE | 2016-12-13 08:00 | NUR ---
Pt. DOESNT RESPOND WHEN TALKING TO PATIENT. FAMILY AT BEDSIDE. Pt. VERY PALE.
--- NOTE | 2016-12-13 08:48 | NUR ---
TRACH CARES DONE BY POWER CROWELL,COLLECTOR OF INTERNAL REVENUE-CHIEF MERCHANDISING OFFICER
--- NOTE | 2016-12-13 16:01 | NUR ---
TRACH CARE TOLERATED WELL.
[2016-12-13 20:00] VITALS: BP 81/56; TEMP 99.3
--- NOTE | 2016-12-13 23:53 | NUR ---
TRACH CARE DONE.
--- NOTE | 2016-12-14 00:42 | NUR ---
12/13/16 2350 RESPIRATORY PRESENT IN ROOM TO SUCTION TRACH TOLERATED WELL.CC 12/14/16 0005 MOUTHCARE DONE,PT MOUTH WIPE TO REMOVE CRUSTY DRY SKIN FROM TONGUE AND LIPS.SMALL AREA TO LEFT SIDE OF BOTTOM LIP TINGE OF BLOOD NOTED TO SKIN COMING OFF. LIP BALM APPLIED TO LIPS PT TOLERATED WELL.PT TURNED AND REPOSTIONED TOLERATED WELL.DAUGHTER AT BEDSIDE.CC
--- NOTE | 2016-12-14 03:03 | NUR ---
12/14/16 0240 RESTING EYES CLOSED RESP EVEN NONLABORED.CC
--- NOTE | 2016-12-14 07:08 | NUR ---
12/14/16 0655 TRACHE CARE PROVIDED PER RESP.MODERATE AMOUNT THICK SECRETIONS.CC
[2016-12-14 08:00] VITALS: BP 88/52; TEMP 98.6
--- NOTE | 2016-12-14 10:37 | NUR ---
ROXAINOL 0.5MG GIVEN SL FOR PAIN
--- NOTE | 2016-12-14 13:57 | NUR ---
TRACH CARE DONE AT 0900. CALLED TO STEPHANIE AT 1300 TO SUCTION PT. TOLERATED WELL DID NOT GET ALOT OF SPUTUM AT THIS TIME. CLEANED TAROUND TRACH AGAIN.
--- NOTE | 2016-12-14 17:21 | NUR ---
ROXAINOL 0.5MG GIVEN SL.
[2016-12-14 20:00] VITALS: BP 88/55; TEMP 99.1
--- NOTE | 2016-12-14 20:44 | NUR ---
ACCESSED PT. CLEANED INNER CANNULA. CHANGED DRESSING. LIGHT-BROWN OZZING NOTED AROUND TRACH. SITE. NURSE AWARE.
[2016-12-15 08:00] VITALS: BP 101/69; TEMP 98.2
--- NOTE | 2016-12-15 10:37 | NUR ---
TRACH DONE TOLERATED WELL. SUCTIONED PT. DID NOT GET ANY SPUTUM.
--- NOTE | 2016-12-15 17:50 | NUR ---
MOUTH CARE DONE AND RT AT BS TO SUCTION TRACH
--- NOTE | 2016-12-15 18:12 | NUR ---
CHANGED GAUZE AROUNG TRACH AND CLEANED TRACH COLLAR.
[2016-12-15 20:00] VITALS: BP 99/58; TEMP 98.6
--- NOTE | 2016-12-15 20:01 | NUR ---
ACESSED PT. CLEANED INNER CANNULA AND CHANGED DRESSING. OZZING LIGHT BROWN SECRETIONS. TOLS TX WELL.
[2016-12-16 08:00] VITALS: BP 111/49; TEMP 96.7
--- NOTE | 2016-12-16 09:34 | NUR ---
TRACH CARE DONE BY POWER DEAN,ASSISTANT FINANCIAL ACCOUNTANT-BUSINESS LEADER
[2016-12-16 20:00] VITALS: BP 125/61; TEMP 99
--- NOTE | 2016-12-16 21:07 | NUR ---
TRACH CARE DONE AT 20:00
--- NOTE | 2016-12-16 23:53 | NUR ---
DEEP SUCTION WAS DONE AT 23:40.
--- NOTE | 2016-12-17 05:00 | NUR ---
12/16/16 AT 2206PT RESTING WITH EYES CLOSED, REPOSITIONED TO BACK WITH FEET ELEVATED ON PILLOW. ROBERTS INTACT WITH NO URINE NOTED, TRACH INTACT WITH CREAM COLORED SECRETIONS COMING FROM TRACH WHEN PT COUGHS. APNEA NOTED FOR 5-7 SECONDS AND SHALLOW BREATHING, LUNGS SOUND WET. PEG INTACT BUT PEG OPEN AND DRAINAGE HAS WET PT'S GOWN AND ANIKA/PADS UNDER PT. WILL RETURN WITH ANOTHER STAFF MEMBER TO ASSIST IN CHANGING PT. ATTEMPTED TO GET RESIDUAL FROM PEG, NOTE ABLE TO GET ANY. FLUSHED WITH 30ML WATER AND THEN ATTEMPTED TO GET RESIDUAL BUT NONE NOTED. HELD FEEDING DUE TO PT'S STATUS, APNEA, AND CREAM COLORED DRAINAGE FROM TRACH. FAMILY AT BEDSIDE, WILL MONITOR, RAILS UP X3, ENCOURAGED TO CALL NEEDED.
--- NOTE | 2016-12-17 05:06 | NUR ---
12/17/16 AT 0345DRESSING AROUND PEG TUBE CHANGED, FEET ELEVATED ON PILLOW, L ARM ELEVATED ON PILLOW, PT PULLED UP IN BED, HOB ELEVATED. SKIN TEAR TO POSTERIOR L SHOULDER IS 2 INCHES LONG AND 1/2 INCH WIDE. SKIN TEAR TO POSTERIOR(LOWER AREA) L THIGH IS 1 1/4 INCH LONG AND 3/4 INCH WIDE. CLEANED BOTH SKIN TEARS WITH NS AND APPLIED TELFA THEN SECURED WITH PAPER TAPE. PT CONTINUES TO HAVE CREAM COLORED DRAINAGE FROM TRACH. WILL MONITOR, FAMILY AT BEDSIDE.
[2016-12-17 08:00] VITALS: BP 85/42; TEMP 96.5
--- NOTE | 2016-12-17 19:59 | NUR ---
TRACH CARE WAS DONE AT 1955,INNER CANNULA HAD NO SECRETIONS, BUT CLEANED IT ANYWAYS. PATIENT HAD BROWN SECRETIONS AROUND TRACH, CHANGED THE GAUZE AND WASH CLOTH. ALSO ADDED NEW WATER BOTTLE TO PATIENTS COOL ARESOL
[2016-12-17 20:00] VITALS: BP 79/25; TEMP 99.8
--- NOTE | 2016-12-18 04:44 | NUR ---
12/18/16 AT 0342NO CHANGE IN PT STATUS, REMAINS UNRESPONSIVE, RESP RATE 10-12 AND SHALLOW, TRACH INTACT WITH NO SECRETIONS NOTED DURING SHIFT, O2 AT 50% VIA TRACH TENT, PULSE RATE IN 120S, ROBERTS INTACT WITH NO OUTPUT NOTED, FEET AND ARMS ELEVATED ON PILLOWS, PEG INTACT, NO RADIAL OR PEDAL PULSES PALPATED. GRAND DAUGHTER AT BEDSIDE. RAILS UP X3, CALL LIGHT IN REACH, BED IN LOW POSITION, HOB REMAINS ELEVATED.
--- NOTE | 2016-12-18 04:52 | NUR ---
12/17/16 AT 2145NO PEG FEEDING OR MEDICATIONS GIVEN VIA PEG DUE TO PT'S STATUS. [facility]. NO CHANGES NOTED, FAMILY AT BEDSIDE, RAILS UP X3, ENCOURAGED FAMILY TO CALL NEEDED.
--- NOTE | 2016-12-18 07:32 | NUR ---
12/18/16 AT 0525SHANNON ORONA WITH [facility] NOTIFIED OF PT'S STATUS. 0550PT PRONOUNCED BY SHANNON ORONA RN.
--- NOTE | 2016-12-18 07:41 | NUR ---
12/18/16 AT 0623[employer] CONTACTED, SPOKE WITH BRUCE. # [id number] . 0640LALIT MARMOLEJO WITH [facility] RETURNED CALL, PT NOT MEDICALLY SUITABLE FOR DONATION.
--- NOTE | 2016-12-18 07:45 | NUR ---
12/18/16 AT 0518NOTE CHANGE IN PT STATUS, PULSE RATE IN 40s, PT'S COLOR HAS CHANGED, RESPIRATIONS AGONAL AT THIS TIME. GRAND DAUGHTER AT BEDSIDE. 0522NO RESPIRATIONS NOTED, NO MOVEMENT OF CHEST, AND NO BREATH SOUNDS HEARD ON AUSCULTATION, NO HEART BEAT NOTED UPON AUSCULTATION OF APICAL PULSE. 0524GRAND DAUGHTER CALLING DAUGHTER AND .
--- NOTE | 2016-12-18 08:02 | NUR ---
12/18/16 AT 0715BODY RELEASED TO [facility] AT THIS TIME.
--- NOTE | 2016-12-18 08:03 | NUR ---
12/18/16 AT 0540[facility] NOW AT BEDSIDE WITH GRAND DAUGHTER. 0625[facility]ORT[facility] CARE PROVIDED BY [facility].
== END 2016-12-18 07:00 | disposition expired | DRG 544 ==
LOC: MED/SURG 16:33
PROVIDERS: ADMIT Emergency Medicine
DX: C79.51 Secondary malignant neoplasm of bone (principal)
CPT/HCPCS: 94640; 94760